=== PATIENT | female | born 1955 | race African-American/Black ===

== ENCOUNTER 2020-05-22 09:56 | Inpatient (IN) | payer SELFPAY ==
--- OUTSIDE RECORDS SUMMARY | 2020-05-22 10:00 | XMS REPORT | Continuity of Care Document ---
:1955 Author Organization [facility] t Address [address] [place] [address] Care Team Providers Name Role Phone Unavailable Unavailable Unavailable Problems Condition Condition Condition Status Onset Resolution Last Treating Co mments Source Name Details Category Date Date Treatment Clinician Date Vaginal Vaginal Problem Active [facility] pain Pain 8-23 da 00:00: Medical 00 Group Malignant Malignant Problem Active [facility] hypertensi Hypertensi 6-27 da on on 00:00: Medical 00 Group Allergies, Adverse Reactions, Alerts This patient has no known allergies or adverse reactions. Social History Smoking Status Start Date Stop Date Source Never Smoker [facility] Medications Ordered Filled Start Stop Current Ordering Indication Dosage Frequency Signature Comments Components Source Medication Medication Date Date Medication? Clinician (SIG) Name Name aspirin 325 aspirin 325 No 1 Q1D aspirin [facility] mg tablet mg tablet 325 mg da Take 1 Take 1 tablet Medical tablet tablet Take 1 Group every day every day tablet by oral by oral every day route. route. by oral route. Cardizem CD Cardizem CD No 1capsul Q1D Cardizem [facility] 180 mg 180 mg e(s) CD 180 mg da capsule,ext capsule,ext capsule,ex Medical ended ended tended Group release release release Take 1 Take 1 Take 1 capsule capsule capsule every day every day every day by oral by oral by oral route for route for route for 30 days. 30 days. 30 days. cyclobenzap cyclobenzap No 1 TID cyclobenza [facility] rine 10 mg rine 10 mg panda 10 da tablet Take tablet Take mg tablet Medical 1 tablet 3 1 tablet 3 Take 1 G roup times a day times a day tablet 3 by oral by oral times a route for route for day by 14 days. 14 days. oral route for 14 days. hydrochloro hydrochloro No 1 Q1D hydrochlor [facility] thiazide 25 thiazide 25 othiazide da mg tablet mg tablet 25 mg Medi darci Take 1 Take 1 tablet Group tablet tablet Take 1 every day every day tablet by oral by oral every day route. take route. take by oral for fluid for fluid route. retention retention take for and high and high fluid bld bld retention pressure pressure and high bld pressure metoprolol metoprolol No 1 BID metoprolol [facility] tartrate 50 tartrate 50 tartrate da mg tablet mg tablet 50 mg Medi darci Take 1 Take 1 tablet Group tablet tablet Take 1 twice a day twice a day tablet by oral by oral twice a route. take route. take day by for blood for blood oral pressure pressure route. take for blood pressure ondansetron ondansetron No 1 Q6H ondansetro [facility] 4 mg 4 mg n 4 mg da disintegrat disintegrat disintegra Medical ing tablet ing tablet ting Barbara up Take 1 Take 1 tablet tablet tablet Take 1 every 6 every 6 tablet hours by hours by every 6 oral route. oral route. hours by oral route. Vital Signs Vital Name Observation Time Observation Value Comments Source BP Diastolic 2019-07-09 00:00:00 97 [facility]Hg[facility] Height 2019-07-09 00:00:00 64 [in_i] [facility] BMI (Body Mass 2019-07-09 00:00:00 25.1 kg/m2 [facility]) Group BP Systolic 2019-07-09 00:00:00 193 mm[facility]Hg[facility] Body Weight 2019-07-09 00:00:00 2339.2 [oz_av] [facility] BP Diastolic 2019-02-06 00:00:00 109 mm[Hg] [facility] Height 2019-02-06 00:00:00 64 [in_i] [facility] BMI (Body Mass 2019-02-06 00:00:00 25.2 kg/m2 [facility] Index) Group BP Systolic 2019-02-06 00:00:00 215 mm[Hg] [facility] Body Weight 2019-02-06 00:00:00 2352 [oz_av] [facility] BP Diastolic 2018-11-17 00:00:00 94 mm[Hg] [facility] Height 2018-11-17 00:00:00 64 [in_i] [facility] BMI (Body Mass 2018-11-17 00:00:00 24.2 kg/m2 [facility] Index) Group BP Systolic 2018-11-17 00:00:00 186 mm[Hg] [facility] Body Weight 2018-11-17 00:00:00 141 [lb_av] [facility] BP Diastolic 2018-10-17 00:00:00 95 mm[Hg] [facility] Height 2018-10-17 00:00:00 64 [in_i] [facility] BMI (Body Mass 2018-10-17 00:00:00 24.8 kg/m2 [facility] Index) Group BP Systolic 2018-10-17 00:00:00 208 mm[Hg] [facility] Body Weight 2018-10-17 00:00:00 144.2 [lb_av] [facility] BP Diastolic 2018-10-14 00:00:00 97 mm[Hg] [facility] Height 2018-10-14 00:00:00 64 [in_i] [facility] BMI (Body Mass 2018-10-14 00:00:00 24.6 kg/m2 [facility]) Group BP Systolic 2018-10-14 00:00:00 218 mm[Hg] [facility] Body Weight 2018-10-14 00:00:00 143.6 [lb_av] [facility] BP Diastolic 2018-08-21 00:00:00 88 mm[Hg] [facility] Height 2018-08-21 00:00:00 64 [in_i] [facility] BMI (Body Mass 2018-08-21 00:00:00 24.7 kg/m2 [facility] Index) Group BP Systolic 2018-08-21 00:00:00 190 mm[Hg] [facility] Body Weight 2018-08-21 00:00:00 2305 [oz_av] [facility] Procedures Procedure Date / Time Performing Clinician Source Performed MAMMO, screening, 2018-08-21 00:00:00 [facility] Back Fusion 2003-09-27 00:00:00 [facility] Hy[facility] Appendectomy [facility] Delivery [facility] Plan of Care Planned Activity Planned Date Details Comments Source Instructions [facility] Encounters Start End Encounter Admission Attending Care Care Encounter Source Date/Time Date/Time Type Type Clinicians Facility Department ID 2019-07-09 2019-07-09 Britany GARVEY [place] - [id number] [facility] 00:00:00 00:00:00 [facility] Medical MANAGER OF PHARMACY: [address] [place] [address] [address], [place] [address] , Ph. 2019-02-06 2019-02-06 Britany MARE [place] - [id number] [facility] 00:00:00 00:00:00 Adilene Brown Medical Medical MANAGER OF PHARMACY: [address] [facility] [address], [place] [address] , Ph. 2018-11-17 2018-11-17 Romina [facility] [place] - [id number] M [facility] 00:00:00 00:00:00 Victoria Miguel Medicjesse galvan MD: [address] [place], [place] [address]N [address] [facility], [place] [address] , Ph. [phone] 2018-10-17 2018-10-17 Romina MARE [place] - [id number] M [facility] 00:00:00 00:00:00 Victoria Miguel Medicjesse galvan MD: [address] [place], [place] [address]N [address] [facility], [place] [address] , Ph. [phone] 2018-10-14 2018-10-14 Romina [facility] [place] - [id number] M [facility] 00:00:00 00:00:00 Darrin Alvarado Medical Medicjesse galvan MD: [address] [place], [place] [address]N [address] [facility], [place] [address] , Ph. [phone] 2018-08-21 2018-08-21 Lorenzo Tomas [facility]G [place] - [id number] [facility] 00:00:00 00:00:00 MD Anselmo: [address] Dane [facility] - [address], [facility] [address] , Ph. Results Test Description Test Time Test Comments Results Result Comments Source Surgical pathology study 2018-10-17 12:30:00 Test Item Value Reference Range Interpretation Comme nts Surgical pathology study (test code = 88226-6) [facility] gy report[id number] 12:30:00 Test Item Value Reference Range Interpretation Comments Surgical pathology see separate pathology study (test code = report. [id number]) [facility]
[2020-05-22 10:41] LABS: Absolute Lymphocytes (CBC) 1.3 K/uL (0.7-4.9); Basophils % 0.4 % (0-1.3); Hematocrit 43.9 % (36.0-45.0); Lymphocytes % 24.7 % (15.3-44.8); MPV 9.4 fL (7.6-11.3); RBC Red Blood Cell Count 4.98 M/uL (3.86-4.86)
[2020-05-22 10:42] LABS: Protime INR 0.93
--- NOTE | 2020-05-22 10:45 | RAD REPORT ---
EXAM DESCRIPTION: CT - Head Brain Wo Cont - 05/22/2020 10:31 am CLINICAL HISTORY: Numbness COMPARISON: None TECHNIQUE: Computed axial tomography of the head was obtained. IV contrast was not requested. All CT scans are performed using dose optimization technique as appropriate and may include automated exposure control or mA/KV adjustment according to patient size. FINDINGS: An intracranial bleed is not seen . The ventricles are normal in caliber. No extra-axial fluid collection is noted. 8 millimeter low-density area anterior left basal ganglia. Small additional low-density areas within the deep and periventricular white matter bilaterally. Small low-density right thalamus may represent an old lacunar infarction Fluid within the sinuses/ mastoids is not seen. IMPRESSION: 8 millimeter low-density area anterior left basal ganglia probably an old lacunar infarc tion. Additional low-density areas within periventricular and deep white matter bilaterally may be ischemic changes secondary to small vessel disease. If patient continues to have clinical symptoms to suggest an acute infarction then MRI of the brain w ould be recommended
[2020-05-22 10:58] LABS: BUN Blood Urea Nitrogen 13 mg/dL (7-18); Bicarbonate 26 mmol/L (21-32); Glucose Level 85 mg/dL (74-106); Magnesium 2.1 mg/dL (1.8-2.4); Potassium 3.7 mmol/L (3.5-5.1); Sodium Level 143 mmol/L (136-145); Troponin (Emerg Dept Use Only) < 0.02 ng/mL (0.0-0.045)
[2020-05-22] MEDS ORDERED: ASPIRIN 81 MG CHEWABLE TABLET ONE (11:09)
[2020-05-22] MEDS ORDERED: FOLIC ACID 5 MG/ML VIAL ONE (11:13)
--- NOTE | 2020-05-22 11:23 | EDPHYS ---
Physician Documentation [facility] Name: Sandra Cervantes Age: 64 yrs Sex: Female : 1955 Arrival Date: 05/22/2020 Time: 10:00 Bed 20 Private MD: ED Physician Octavio Duong HPI: 05/22 10:20 This 64 yrs old Black Female presents to ER via Ambulatory with complaints of Numbness rn Of Legs/Right Side, High Blood Pressure. 10:20 The patient presents to the emergency department with weakness of the right upper rn extremity, right lower extremity, right side of the face, paresthesias of the right lower extremity, right upper extremity, right side of the face. Onset: The symptoms/episode began/occurred 1.5 week(s) ago. Associated signs and symptoms: Pertinent positives: weakness, Pertinent negatives: fever, headache, neck stiffness, seizure, syncope, blurred vision, double vision, visual field changes, loss of vision. Severity of symptoms: At their worst the symptoms were mild in the emergency department the symptoms are unchanged. Current symptoms:. The patient has not experienced similar symptoms in the past. The patient has been recently seen by a physician:. Reports right sided weakness and numbness, began 1.5 weeks ago, then diagnosed with COVID this past week, never went away, feels worse of last 2 days. Reports assoc with dizziness as well. Off BP meds for > 1 year as changing doctors. . Historical: - Allergies: 10:15 No Known Allergies; ll1 - PMHx: 10:15 Hypertension; ll1 - PSHx: 10:15 Hysterectomy; ll1 - Immunization history:: Flu vaccine is not up to date. - Social history:: Smoking status: Patient denies any tobacco usage or history of. - Family history:: not pertinent. - Hospitalizations: : No recent hospitalization is reported. ROS: 10:20 Constitutional: Negative for fever, chills, and weight loss, Eyes: Negative for injury, rn pain, redness, and discharge, Neck: Negative for injury, pain, and swelling, Cardiovascular: Negative for chest pain, palpitations, and edema, Respiratory: Negative for shortness of breath, cough, wheezing, and pleuritic chest pain, Abdomen/GI: Negative for abdominal pain, nausea, vomiting, diarrhea, and constipation, Back: Negative for injury and pain, MS/Extremity: Negative for injury and deformity, Skin: Negative for injury, rash, and discoloration, Neuro: + right sided wekaness and numbness 10:20 All other systems are negative. Exam: 10:20 Constitutional: This is a well developed, well nourished patient who is awake, alert, rn and in no acute distress. Ambulatory to room with abnormal gait. Head/Face: Normocephalic, atraumatic. Eyes: Pupils equal round and reactive to light, extra-ocular motions intact. Neck: Trachea midline, no thyromegaly or masses palpated, and no cervical lymphadenopathy. Supple, full range of motion without nuchal rigidity, or vertebral point tenderness. No Meningismus. Cardiovascular: Regular rate and rhythm Respiratory: No increased work of breathing, no retractions or nasal flaring. Abdomen/GI: soft, non-tender Skin: Warm, dry MS/ Extremity: Pulses equal, no cyanosis. Neuro: Awake and alert, GCS 15, oriented to person, place, time, and situation. + mild right facial numbness, no facial droop noted. + RUE and RLE decreased sensation to soft touch, no drift. 5/5 strength RUE/LUE/LLE, 4/5 strength RLE. Coordination testing without abnormality. 11:07 ECG was reviewed by the Attending Physician. rn Vital Signs: 10:15 BP 229 / 109; Pulse 60; Resp 17; Temp 97.9; Weight 66.22 kg; Height 5 ft. 4 in. (162.56 ll1 cm); Pain 3/10; 10:27 BP 199 / 108; Pulse 61; Resp 20; Pulse Ox 97% ; bw 11:03 BP 180 / 88; Pulse 54; Resp 20; Pulse Ox 97% on R/A; bw 13:19 BP 182 / 77; Pulse 55; Resp 18; Pulse Ox 97% on R/A; bw 10:15 Body Mass Index 25.06 (66.22 kg, 162.56 cm) ll1 NIH Stroke Scale Scores: 10:43 NIHSS Score: 2 rn MDM: 10:02 Patient medically screened. rn 10:43 ED course: No indication for tpa given onset of symptoms 1.5 weeks prior to rn presentation. . 11:19 Data reviewed: vital signs, nurses notes, lab test result(s), EKG, radiologic studies, rn CT scan, and as a result, I will admit patient. Counseling: I had a detailed discussion with the patient and/or guardian regarding: the historical points, exam findings, and any diagnostic results supporting the discharge/admit diagnosis, lab results, radiology results, the need for further work-up and treatment in the hospital. Response to treatment: the patient's symptoms have mildly improved after treatment, and as a result, I will admit patient. Admission orders: after a detailed discussion of the patient's condition and case, the admit orders are written by me. ED course: Bp improved without intervention, currently 180/88, given aspirin and folic acid. Nursing states failed swallow screen when chewing aspirin, will admit to [facility] for MRI in AM and breanauo/cardiology consultation for subacute CVA and uncontrolled HTN.. 05/22 10:12 Order name: Magnesium rn 05/22 10:12 Order name: Troponin (emerg Dept Use Only); Complete Time: 11: rn 05/22 10:12 Order name: Basic Metabolic Panel; Complete Time: 11: rn 05/22 10:12 Order name: CBC with Diff; Complete Time: 10: rn 05/22 10:12 Order name: Protime (+inr); Complete Time: : rn 05/22 10:12 Order name: Ptt, Activated; Complete Time: : rn 05/22 10:12 Order name: EKG; Complete Time: 10: rn 05/22 10:12 Order name: Accucheck; Complete Time: : rn 05/22 10:12 Order name: Cardiac monitoring; Complete Time: : rn 05/22 10:12 Order name: CT Head Brain wo Cont; Complete Time: : rn 05/22 10:12 Order name: Magnesium; Complete Time: 11:12 EDMS 05/22 10:59 Order name: Glucose, Ancillary Testing; Complete Time: 11:12 EDMS 05/22 10:12 Order name: EKG - Nurse/Tech; Complete Time: : rn 05/22 10:12 Order name: IV Saline Lock; Complete Time: : rn 05/22 10:12 Order name: Labs collected and sent; Complete Time: rn 05/22 10:12 Order name: NPO; Complete Time: 10: rn 05/22 10:12 Order name: O2 Per Protocol; Complete Time: : rn 05/22 10:12 Order name: O2 Sat Monitoring; Complete Time: rn 05/22 10:12 Order name: Stroke Swallow Screen; Complete Time: 11: rn EC:07 Rate is 50 beats/min. Rhythm is regular. QRS [place] is Normal. [place] interval is normal. QRS rn interval is normal. QT interval is normal. No Q waves. T waves are Normal. No ST changes noted. Clinical impression: Sinus bradycardia. Interpreted by me. Reviewed by me. Administered Medications: 11: Drug: Aspirin Chewable Tablet 324 mg Route: PO; bw 13:09 Follow up: Response: No adverse reaction bw 11: Drug: foLIC Acid 1 mg Route: IVPB; Site: right antecubital; bw 13:09 Follow up: Response: No adverse reaction; IV Status: Completed infusion bw Disposition: 05/22/20 11:22 Hospitalization ordered by [facility] for Inpatient Admission. Preliminary diagnosis are Subacute ischemic stroke, Malignant Hypertension, Weakness, Paresthesia of skin. - Bed requested for Telemetry/MedSurg (Inpatient). - Status is Inpatient Admission. sv - Condition is Stable. - Problem is new. - Symptoms have improved. NIH Stroke Scale - NIH Stroke Score Date: 05/22/2020 Time: 10:43 Total Score = 2 1a. Level of Consciousness (LOC) - 0(Alert) 1b. Level of Consciousness (LOC) (Year \T\ Age) - 0(Both) 1c. LOC Commands (Open \T\ Closes Eyes/Repairer Veneer Sheet) - 0(Both) 2. Best Gaze (Lateral Gaze Paresis) - 0(Normal) 3. Visual Field Loss - 0(No visual loss) 4. Facial Palsy - 0(Normal) 5a. Left Arm: Motor (10-second hold) - 0(No drift) 5b. Right Arm: Motor (10-second hold) - 0(No drift) 6a. Left Leg: Motor (5-second hold - always test supine) - 0(No drift) 6b. Right Leg: Motor (5-second hold - always test supine) - 1(Drift) 7. Limb Ataxia (finger/nose \T\ heel/majano - test with eyes open) - 0(Absent) 8. Sensory Loss (pinprick arms/legs/face) - 1(Mild to moderate loss) 9. Best Language: Aphasia (description/naming/reading) - 0(No aphasia) 10. Dysarthria (speech clarity - read or repeat words) - 0(Normal) 11. Extinction and Inattention (visual/tactile/auditory/spatial/personal) - 0(No abnormality) Initials: rn Signatures: Dispatcher [employer] EDBelkis Dean RN RN sv Woody, Diana, RN RN dw Nieto, Roman, MD MD rn Lewis, Lynsay, RN RN ll1 Marlena Marroquin RN RN bw Corrections: (The following items were deleted from the chart) 12:48 11:22 Hospitalization Ordered by [facility] for Inpatient Admission. dw Preliminary diagnosis is Subacute ischemic stroke; Malignant Hypertension; Weakness; Paresthesia of skin. Bed requested for Telemetry/MedSurg (Inpatient). Status is Inpatient Admission. Condition is Stable. Problem is new. Symptoms have improved. rn 14:12 12:48 05/22/2020 11:22 Hospitalization Ordered by [facility] for Inpatient Admission. Preliminary diagnosis is Subacute ischemic stroke; Malignant Hypertension; Weakness; Paresthesia of skin. Bed requested for Telemetry/MedSurg (Inpatient). Status is Inpatient Admission. Condition is Stable. Problem is new. Symptoms have improved. dw
--- NOTE | 2020-05-22 11:23 | ER ---
Nurse's Notes [facility] Name: Sandra Cervantes Age: 64 yrs Sex: Female : 1955 Arrival Date: 05/22/2020 Time: 10:00 Bed 20 Private MD: Diagnosis: Subacute ischemic stroke;Malignant Hypertension;Weakness;Paresthesia of skin Presentation: 05/22 10:15 Chief complaint: Patient states: R sided weakness and feeling off balanced since 05-11. ll1 BP elevated at home 202/120. States her speech is slightly slurred at times. Covid + dx 05/18. States her cough and fever are a lot better now. Coronavirus screen: Client denies travel out of the [place] in the last 14 days. cough unrelated to allergies, Client presents with at least one sign or symptom that may indicate coronavirus-19. Standard/surgical mask placed on the client. Client reports previous positive COVID test result. Ebola Screen: Patient denies travel to an Ebola-affected area in the 21 days before illness onset. Initial Sepsis Screen: Does the patient meet any 2 criteria? No. Patient's initial sepsis screen is negative. Does the patient have a suspected source of infection? No. Patient's initial sepsis screen is negative. Risk Assessment: Do you want to hurt yourself or someone else? Patient reports no desire to harm self or others. Onset of symptoms was May 11, 2020. 10:15 Method Of Arrival: Ambulatory ll1 10:15 Acuity: ELIDA 2 ll1 Historical: - Allergies: 10:15 No Known Allergies; ll1 - PMHx: 10:15 Hypertension; ll1 - PSHx: 10:15 Hysterectomy; ll1 - Immunization history:: Flu vaccine is not up to date. - Social history:: Smoking status: Patient denies any tobacco usage or history of. - Family history:: not pertinent. - Hospitalizations: : No recent hospitalization is reported. Screenin:19 Abuse screen: Denies threats or abuse. Nutritional screening: No deficits noted. ll1 Tuberculosis screening: No symptoms or risk factors identified. Fall Risk IV access (20 points). Gait- Weak (10 pts.). Total Wyman Fall Scale indicates Low Risk Score (25-44 pts). Fall prevention measures have been instituted. Side Rails Up X 2 Frequent Obs/Assesments occuring As available Patient and Family Educated on Fall Prevention Program and strategies. Assessment: 10:27 General: Appears in no apparent distress. Behavior is cooperative, appropriate for age, bw anxious. Pain: Complains of pain in right leg. Neuro: Reports numbness in right cheek and right leg weakness in right leg since 10 days ago. Cardiovascular: high BP since arrival. Pt states she has had high BP for some time now. . Respiratory: No deficits noted. GI: No signs and/or symptoms were reported involving the gastrointestinal system. : No signs and/or symptoms were reported regarding the genitourinary system. EENT: No signs and/or symptoms were reported regarding the EENT system. Derm: No signs and/or symptoms reported regarding the dermatologic system. Musculoskeletal: Reports weakness in right leg numbness in right leg since 10 days ago. 11:02 Neuro: Pt has failed swallow screen. Reported to MD . bw 12:00 Reassessment: No changes from previously documented assessment. bw 13:00 Reassessment: Patient appears in no apparent distress at this time. Patient and/or bw family updated on plan of care and expected duration. Pain level reassessed. Patient is alert, oriented x 3, equal unlabored respirations, skin warm/dry/pink. Vital Signs: 10:15 BP 229 / 109; Pulse 60; Resp 17; Temp 97.9; Weight 66.22 kg; Height 5 ft. 4 in. (162.56 ll1 cm); Pain 3/10; 10:27 BP 199 / 108; Pulse 61; Resp 20; Pulse Ox 97% ; bw 11:03 BP 180 / 88; Pulse 54; Resp 20; Pulse Ox 97% on R/A; bw 13:19 BP 182 / 77; Pulse 55; Resp 18; Pulse Ox 97% on R/A; bw 10:15 Body Mass Index 25.06 (66.22 kg, 162.56 cm) ll1 NIH Stroke Scale Scores: 10:43 NIHSS Score: 2 modern dancer Course: 10:00 Patient arrived in ED. rg4 10:02 Octavio Duong MD is Attending Physician. rn 10:15 Arm band placed on Patient placed in an exam room, on a stretcher. ll1 10:19 Triage completed. ll1 10:19 Patient has correct armband on for positive identification. Bed in low position. Call ll1 light in reach. Side rails up X 1. desktop publishing specialist on. Pulse ox on. NIBP on. 10:27 Marlena Marroquin RN is Primary Nurse. bw 10:27 No provider procedures requiring assistance completed. Inserted saline lock: 20 gauge bw in right antecubital area, using aseptic technique. 10:31 CT Head Brain wo Cont In Process Unspecified. EDMS 11:19 Magnesium Sent. sv 11:21 Raul Elizabeth is Hospitalizing Provider. rn Administered Medications: 11:02 Drug: Aspirin Chewable Tablet 324 mg Route: PO; bw 13:09 Follow up: Response: No adverse reaction bw 11:02 Drug: foLIC Acid 1 mg Route: IVPB; Site: right antecubital; bw 13:09 Follow up: Response: No adverse reaction; IV Status: Completed infusion bw Outcome: 11:22 Decision to Hospitalize by Provider. rn 14:12 Patient left the ED. sv NIH Stroke Scale - NIH Stroke Score Date: 05/22/2020 Time: 10:43 Total Score = 2 1a. Level of Consciousness (LOC) - 0(Alert) 1b. Level of Consciousness (LOC) (Year \T\ Age) - 0(Both) 1c. LOC Commands (Open \T\ Closes Eyes/Diecast Machine Operator) - 0(Both) 2. Best Gaze (Lateral Gaze Paresis) - 0(Normal) 3. Visual Field Loss - 0(No visual loss) 4. Facial Palsy - 0(Normal) 5a. Left Arm: Motor (10-second hold) - 0(No drift) 5b. Right Arm: Motor (10-second hold) - 0(No drift) 6a. Left Leg: Motor (5-second hold - always test supine) - 0(No drift) 6b. Right Leg: Motor (5-second hold - always test supine) - 1(Drift) 7. Limb Ataxia (finger/nose \T\ heel/majano - test with eyes open) - 0(Absent) 8. Sensory Loss (pinprick arms/legs/face) - 1(Mild to moderate loss) 9. Best Language: Aphasia (description/naming/reading) - 0(No aphasia) 10. Dysarthria (speech clarity - read or repeat words) - 0(Normal) 11. Extinction and Inattention (visual/tactile/auditory/spatial/personal) - 0(No abnormality) Initials: rn Signatures: Dispatcher [employer] Belkis Melgar RN RN Octavio Mejias MD MD rn Garcia, Rubi rg4 Dalila Murphy RN RN 1 Marlena Marroquin RN RN bw Corrections: (The following items were deleted from the chart) 13:17 12:00 Reassessment: Patient appears in no apparent distress at this time. bw Patient and/or family updated on plan of care and expected duration. Pain level reassessed. Patient is alert, oriented x 3, equal unlabored respirations, skin warm/dry/pink. bw
--- NOTE | 2020-05-22 12:52 | P.HP ---
Certification for Inpatient Patient admitted to: Inpatient With expected LOS: >2 Midnights Practitioner: I am a practitioner with admitting privileges, knowledge of patient current condition, hospital course, and medical plan of care. Services: Services provided to patient in accordance with Admission requirements found in Title 42 Section 412.3 of the Code of Federal Regulations Patient History Date of Service: 05/22/20 Reason for admission: Right-sided weakness History of Present Illness: 64-year-old hypertension presented emergency department with a complaint right sided with weakness and right facial droop. Patient reports experiencing numbness in the right upper extremity lower extremity about 1/2 weeks ago. Symptoms progressed to weakness in both the right upper extremity and right lower a week later. Patient report feeling generally weak few days ago and therefore had COVID 19 test done which came back positive. CT head done in the emergency department showed 8 mm low density left basal ganglia, additional low- density areas in the periventricular and white matter. EKG is unremarkable showing sinus rhythm. Patient admitted for further management of acute CVA. - Past Medical/Surgical History -: Hypertension -: Hysterectomy - Family History Mother -: Cancer (Breast cancer) - Social History Smoking Status: Never smoker Alcohol use: No CD- Drugs: No Place of Residence: Home Review of Systems Other: Patient denied any headache, no shortness of breath, no abdominal pain, no diarrhea, no nausea and vomiting. He reports intermittent nonproductive cough. Except as documented, all other systems reviewed and negative. Physical Examination - Physical Exam General: Alert, In no apparent distress, Oriented x3 HEENT: Normocephalic, PERRLA, Mucous membr. moist/pink, EOMI, Sclerae nonicteric Neck: Supple, JVD not distended, No Thyromegaly Respiratory: Clear to auscultation bilaterally, Normal air movement Cardiovascular: No edema, Regular rate/rhythm, Normal S1 S2 Gastrointestinal: Normal bowel sounds, Soft and benign, Non-distended, No tenderness Musculoskeletal: No swelling, No tenderness Integumentary: No rashes, No erythema Neurological: Other (Motrin right upper and lower extremities-4/5, motor in the left upper and lower extremities-5/5. Right facial droop.) - Studies Laboratory Data (last 24 hrs) 05/22/20 10:25: PT 10.7, INR 0.93, APTT 29.1 05/22/20 10:25: WBC 5.30, Hgb 14.8, Hct 43.9, Plt Count 136 L 05/22/20 10:25: Sodium 143, Potassium 3.7, BUN 13, Creatinine 0.58, Glucose 85, Magnesium 2.1 Assessment and Plan - Problems (Diagnosis) (1) Acute CVA (cerebrovascular accident) Current Visit: Yes Status: Acute (2) Malignant hypertension Current Visit: Yes Status: Acute (3) COVID-19 Current Visit: Yes Status: Acute - Plan Admit patient to the medical floor. Stroke workup with MRI of the brain, carotid Doppler, echocardiogram. Start aspirin 162 mg daily. Will start amlodipine. It been 1 and 1/2 weeks since her neurologic symptoms- stroke onset and need to control her blood pressure Hydralazine IV p.r.n. for BP spikes. Lipitor 40 mg at bedtime Check lipid profile Neurology consult. Check chest x-ray to rule out COVID pneumonia. Folic acid, vitamin supplementation. - Advance Directives Does patient have a Living Will: No Does patient have a Durable POA for Healthcare: No
[2020-05-22] MEDS: NA CHLORIDE 0.9% 1,000 ML IV SCH (15:07)
[2020-05-22 15:21] VITALS: BMI 25.0
--- NOTE | 2020-05-22 15:34 | RAD REPORT ---
EXAM DESCRIPTION: [place] Single View05/22/2020 3:28 pm CLINICAL HISTORY: Cough COMPARISON: none FINDINGS: The left lung base is hazy. The right lung appears clear. The heart is upper limits normal size IMPRESSION: The left base is hazy probably secondary to overlying soft tissue. As infiltrate can als o have this appearance. A PA and lateral chest series is recommended
[2020-05-22] MEDS: HYDRALAZINE HCL 20 MG/ML VIAL IV PRN (16:22)
[2020-05-22] MEDS: AMLODIPINE 10 MG TAB PO SCH (16:22)
[2020-05-22] MEDS: ASCORBIC ACID 500 MG TABLET PO SCH ×2 (17:00→19:57)
--- NOTE | 2020-05-22 17:56 | RAD REPORT ---
EXAM DESCRIPTION: USCarotid Artery Bilateral05/22/2020 5:42 pm CLINICAL HISTORY: Acute CVA COMPARISON: None FINDINGS: The velocity of the right internal carotid artery equals 96 cm/sec. The right ICA/CCA rati o .8 The velocity of the left internal carotid artery equals 78 cm/sec. The left ICA/CCA ratio .8 Mild plaque is present within the carotid arteries. The vertebral arteries demonstrate antegrade flow IMPRESSION: Mild plaque within the carotid arteries without evidence of a hemodynamically significan t stenosis NASCET criteria used. Mild 0-49% stenosis Moderate 50-69% stenosis Severe 70-99% stenosis
[2020-05-22] MEDS: ACETAMINOPHEN 500 MG TAB PO PRN (19:57)
[2020-05-22] MEDS: ATORVASTATIN 20 MG TAB PO SCH (19:57)
[2020-05-22] MEDS: ONDANSETRON 4 MG/2 ML VIAL IV PRN (19:57)
[2020-05-23 04:30] LABS: Absolute Lymphocytes (CBC) 1.3 K/uL (0.7-4.9); Basophils % 0.4 % (0-1.3); Hematocrit 42.4 % (36.0-45.0); Lymphocytes % 33.7 % (15.3-44.8); MPV 9.8 fL (7.6-11.3); RBC Red Blood Cell Count 4.78 M/uL (3.86-4.86)
[2020-05-23 04:52] LABS: BUN Blood Urea Nitrogen 14 mg/dL (7-18); Bicarbonate 29 mmol/L (21-32); Glucose Level 76 mg/dL (74-106); HDL Cholesterol 65 mg/dL (40-60); LDL Cholesterol, Calculated 113 (<130); Magnesium 1.9 mg/dL (1.8-2.4); Phosphorus 3.5 mg/dL (2.5-4.9); Sodium Level 142 mmol/L (136-145)
[2020-05-23 04:57] LABS: Barbiturates NEGATIVE (NEGATIVE); Benzodiazepines NEGATIVE (NEGATIVE); Cocaine NEGATIVE (NEGATIVE); METHAMPHETAM NEGATIVE (NEGATIVE); Methadone NEGATIVE (NEGATIVE); Opiates NEGATIVE (NEGATIVE); Phencyclidine NEGATIVE (NEGATIVE); THC Cannibis NEGATIVE (NEGATIVE)
[2020-05-23 04:59] LABS: Urine Appearance CLEAR; Urine Bilirubin NEGATIVE (NEG); Urine Blood NEGATIVE (Negative); Urine Color YELLOW; Urine Glucose NEGATIVE (Negative); Urine Protein NEGATIVE (NEG); Urine pH 6.5 (5.0-7.0)
[2020-05-23 05:14] LABS: Urine Microscopic Reflex NO UMIC
[2020-05-23] MEDS: ACETAMINOPHEN 500 MG TAB PO PRN ×2 (05:42→19:02)
[2020-05-23 06:15] LABS: Blood Morphology Comment NOT SEEN (NOT SEEN); Platelet Estimate ADEQ
[2020-05-23] MEDS: FOLIC ACID 1 MG TABLET PO SCH (07:25)
[2020-05-23] MEDS: ASPIRIN EC 81 MG TAB PO SCH (07:25)
[2020-05-23] MEDS: VITAMIN D 1000 UNIT TAB PO SCH (07:25)
[2020-05-23] MEDS: AMLODIPINE 10 MG TAB PO SCH (07:25)
[2020-05-23] MEDS: ASCORBIC ACID 500 MG TABLET PO SCH ×4 (07:25→19:47)
[2020-05-23] MEDS: ZINC SULFATE 220 MG CAP PO SCH (07:26)
[2020-05-23] MEDS: ENOXAPARIN 40 MG/0.4 ML SQ SCH (07:26)
[2020-05-23] MEDS: NA CHLORIDE 0.9% 1,000 ML IV SCH (11:07)
--- NOTE | 2020-05-23 11:46 | RAD REPORT ---
EXAM DESCRIPTION: MRI - Brain W/Wo Cont - 05/23/2020 11:27 am CLINICAL HISTORY: cva, right-sided weakness, positive COVID COMPARISON: MRA Head Wo Cont dated 05/23/2020; Head Brain Wo Cont dated 05/22/2020; MRA Neck W/Wo Cont dated 05/23/2020 TECHNIQUE: Sagittal and axial T1-weighted images were obtained. Axial PD/heavily T2-weighted and T2- FLAIR images were obtained along with axial DWI/ADC mapping sequences. Coronal heavily T2 weighted s equence obtained. Axial and coronal post-contrast T1-weighted images were also obtained. A 14 ml Mul tihance contrast following utilized. FINDINGS: Two 10 millimeter sized areas of restricted diffusion noted in the lateral margin of the l eft thalamus involving the posterior limb internal capsule on the left. There is corresponding dimini shed signal on ADC mapping. Two additional 5 millimeter sized areas of restricted diffusion noted in the medial margin of the left temporal lobe in relatively close proximity to the other 2 lesions. The se also have diminished signal on ADC mapping. No intracranial hemorrhage present. No other areas of acute infarctions seen There is no edema or maria de jesus ft of midline structures. No extra-axial fluid collections. Caraballo-matter/white matter junction is pres erved. Signal voids are seen as a normal finding in the major intracranial vessels. Patient has scat tered areas of hyperintense T2/IR signal in the cerebral white matter. No associated enhancement on p ostcontrast imaging. Atrophy changes are mild. Chronic ischemic pattern is more prominent than typica lly seen at this age. Ventricles are in proportion to any volume loss. Post-contrast images show no brain parenchymal enhancement. No dural thickening or enhancement. Mastoid air cells and paranasal sinuses are clear. IMPRESSION: Cluster of nonhemorrhagic acute infarctions, 5-10 mm in size, along the lateral margin o f the left thalamus involving the posterior limb internal capsule on the left and medial aspect of th e left temporal lobe. Atrophy changes are present with ventricles in proportion. Patient has chronic ischemic changes scatt ered throughout the cerebral white matter more prominent than typically seen at this age.
--- NOTE | 2020-05-23 11:50 | RAD REPORT ---
EXAM DESCRIPTION: MRI - MRA Head Wo Cont - 05/23/2020 11:26 am CLINICAL HISTORY: Acute CVA COMPARISON: MRI brain same date TECHNIQUE: Axial and coronal 3D [id number] image acquisition was performed. 3D rotational images were generated with source and reconstruction images reviewed. Horizontal and vertical axis rotation al views generated using MIP protocol. FINDINGS: No aneurysm or vascular malformation identifiable. Distal vertebral arteries and basilar a rtery show no suspicious findings. No significant atherosclerotic stenosis changes identified in the distal internal carotid arteries. There is some atherosclerotic changes evident in the right supracli noid ICA. No named branch occlusion or focal high-grade stenosis seen in the anterior, posterior or m iddle cerebral artery distributions. The A1 segment right anterior cerebral artery is absent probably as an anatomic variant rather than due to vascular disease. The patient's infarction pattern generally involves small thalamoperforating branches below MR resolu tion. IMPRESSION: Scattered atherosclerotic changes are present but no named branch occlusion for signific ant luminal stenoses.
--- NOTE | 2020-05-23 11:51 | RAD REPORT ---
EXAM DESCRIPTION: MRI - MRA Neck W/Wo Cont - 05/23/2020 11:26 am CLINICAL HISTORY: Acute CVA left thalamus margin and posterior limb internal capsule COMPARISON: None. TECHNIQUE: Axial and coronal 3D [id number] image acquisition was performed. 3D rotational images were generated with source and reconstruction images reviewed. Horizontal and vertical axis rotation al views generated using MIP protocol. FINDINGS: No aneurysm or vascular malformation. Codominant vertebral arteries show no origins stenos es and no significant atherosclerotic change along the course of the vessels. No basilar artery abnor mality. Aortic arch is 3 vessel configuration with no origins stenosis. No dissection or significant atherosc lerotic changes in the carotid vasculature. There is bilateral internal carotid artery tortuosity, mo re so on the right. IMPRESSION: MRA neck imaging shows no significant findings.
--- NOTE | 2020-05-23 12:22 | P.PN ---
Subjective Date of Service: 05/23/20 Chief Complaint: Right-sided weakness Patient seen ambulating the bathroom and unassisted. She states she feels better. She denies any trouble with swallowing and wants to eat. Physical Examination - Vital Signs Temperature: 97.4 F Blood Pressure: 177/80 Pulse: 63 Respirations: 17 Pulse Ox (%): 98 - Physical Exam General: Alert, In no apparent distress, Oriented x3 Neck: Supple, JVD not distended Respiratory: Clear to auscultation bilaterally, Normal air movement Cardiovascular: No edema, Regular rate/rhythm, Normal S1 S2 Gastrointestinal: Normal bowel sounds, Soft and benign Musculoskeletal: No swelling, No tenderness Integumentary: No rashes, No erythema Neurological: Other (Mild right facial droop) Assessment And Plan - Current Problems (Diagnosis) (1) Acute CVA (cerebrovascular accident) Current Visit: Yes Status: Acute (2) Malignant hypertension Current Visit: Yes Status: Acute (3) COVID-19 Current Visit: Yes Status: Acute - Plan MRI of the brain report multiple nonhemorrhagic acute CVA in the left thalamus, temporal and internal capsule. MRA of the head and neck: Shows atherosclerotic lesions, no significant vessel stenosis. MRI of the neck: No significant abnormality. Echocardiogram is pending Continue aspirin 162 mg daily. Continue amlodipine for a target systolic blood pressure between 140-160. Hydralazine IV p.r.n. for BP spikes. Continue lipitor. Neurology-Dr. Belcher input appreciated. Dr. Belcher to see patient. Chest x-ray: No significant infiltrate to suggest COVID pneumonia. Patient is tolerating room air with good oxygen saturation. Folic acid, vitamin supplementation.
[2020-05-23] MEDS ORDERED: HYDROCODONE/APAP 7.5/325 MG TAB PO PRN (19:33)
[2020-05-23] MEDS: ATORVASTATIN 20 MG TAB PO SCH (19:47)
[2020-05-23] MEDS: HYDRALAZINE HCL 20 MG/ML VIAL IV PRN (19:53)
--- NOTE | 2020-05-23 21:50 | CON ---
Reason For Consultation: Consultation called due to stroke. History Of Present Illness: Ms. Cervantes is a 64-year-old right-handed patient with history of hypertension, who was enjoying spring break over a week and a half ago when she developed right-s ided numbness and weakness including face, arm, and leg. She did not immediately seek attention of [facility] medical services. She was having symptoms just of mild fever of COVID-19 and was actually tested positive for COVID-19 one week ago. She eventually came to [facility] on May 22, 2020, wh ere her brain imaging included a head CT scan that identified an 8 mm low-density area in the left ba kriss ganglia related to an old infarct possibly; however, an MRI of the brain done the following day i dentified the area as having 2 areas actually of restricted diffusion in the left margin of the left thalamus and posterior limb of the internal capsule on the left. There were 2 additional 5 mm sized areas of restricted diffusion in the medial margin of the left temporal lobe, which were close in pro ximity to the prior 2 and these were found to be acute strokes. The patient's symptoms of right-side d numbness and weakness correlated with the location of these acute strokes. The cervical or neck ma gnetic resonance angiogram did not identify any significant blockage or abnormality and the MRA of th e head confirmed the presence of the strokes as indicated. The patient was not taking an aspirin and was put on aspirin, she is receiving 162 mg daily, put on folic acid and statin, Lipitor 40 mg at [facility]. She was placed on amlodipine and has had blood pressures ranging up to systolic 177 and diastol ic in the 80s, pulse is normal in the 60s to 70s, and she is afebrile. Since hospitalization, she fe els she is back to about 40-50% of normal. She did ambulate with physical therapist, but was driftin g towards the right and did have some difficulty maintaining an upright stance. Past Medical History: As indicated including the hypertension. Past Surgical History: Hysterectomy. Family History: Breast cancer in mother. Social History: Denies alcohol, tobacco, or IV drug use. Review of Systems: Aside from the fever and some nonproductive cough, she did have COVID test being positive. Current Medications: Norvasc 10 mg daily, vitamin C 1000 mg 4 times daily, aspirin 162 mg daily, Lip itor 40 mg at bedtime, vitamin D 4000 units daily, Lovenox 40 mg subcutaneously daily, folate 1 mg da kash, hydralazine as needed for blood pressure control that is 10 mg every 6 hours, and zinc 220 mg da kash. Physical Examination: Vital Signs: Blood pressure 177/80, pulse 63, respiratory rate 16, temperature 98.1, oxygen saturati on 98% on room air. Weight 146 pounds, height 5 feet 4 inches, BMI 25.1. General: Ms. Cervantes is resting in bed. She is eating lunch. She is in no acute distress. HEENT: She is normocephalic, atraumatic. Sclerae anicteric. Oropharynx pink and moist. Neck: Supple. Chest: Clear. Heart: Regular. Extremities: No edema, cyanosis, or clubbing. Neurological: Cranial nerve exam, she has no obvious deficits there except for mild decrease in the right nasolabial fold and decreased sensation in the right V1, V2, V3 compared to the left side. She was actually cleared for swallowing and is now eating. She did have a meal in 2 days. Motor examin ation in the left upper and lower extremity 5/5, in the right 4/5 proximally and distally. Sensory e xam, normal sensation to light touch, pinprick, and temperature in the left upper and lower extremity , on the right side decreased to the arm and leg to light touch and temperature. Reflexes symmetric in upper and lower extremities. Coordination intact in the upper and lower extremities. Gait, some tendency to fall over to the right side. Laboratory Studies: Complete blood count with differential shows white blood cell count 3.8 and hemo globin 14.2. INR 0.93. Chemistries essentially unremarkable except for slightly elevated chloride 1 09, calcium 8.4. Phosphorus and magnesium are normal. Her LDL cholesterol 113, HDL cholesterol is 6 5. Vitamin D is pending. B12 is 662. TSH is 2.06. Urinalysis shows 2+ ketones, otherwise normal. Toxicology is negative. Her carotid artery ultrasound shows no evidence of hemodynamically signific ant stenosis with mild hard plaque bilaterally. Chest x-ray shows left lung base is hazy, probably s econdary to overlying soft tissue, however, it is noted that an infiltrate may also have this appeara nce and a PA study and lateral study is recommended. Assessment: Ms. Cervantes is a 64-year-old patient, who is COVID positive, has hypertension as an celsa tional stroke risk factor and was on a spring break when the event occurred. She had stroke of the l ikely posterior circulation perforating arteries, left to the thalamus and medial structures in the o ccipital region. She has deficits in the strength and sensation in the face, arm, and leg on the rig ht. Plan: 1.Treat for acute COVID with supplements as indicated, which she is currently on. 2.Aspirin 81 mg daily. 3.Folate 1 mg daily. 4.Lipitor 40 mg at bedtime. 5.The patient may benefit from aggressive physical therapy, which may be done outpatient as she was ambulated by physical therapy and did have difficulty moving the right lower extremity. She was able to stand, transfer, and ambulate with small steps. Her plan was to be discharged home, but to [facility] physical therapy on an outpatient basis and this should be continued. She may follow up in Dr. Zoey graff's clinic 1 month after discharge. LEAH/MARIELY Voice ID: [id number] Report ID: [id number]
[2020-05-24 04:10] LABS: Absolute Lymphocytes (CBC) 1.5 K/uL (0.7-4.9); Basophils % 0.4 % (0-1.3); Hematocrit 40.8 % (36.0-45.0); Lymphocytes % 36.7 % (15.3-44.8); MPV 9.8 fL (7.6-11.3); RBC Red Blood Cell Count 4.61 M/uL (3.86-4.86)
[2020-05-24 04:37] LABS: BUN Blood Urea Nitrogen 16 mg/dL (7-18); Bicarbonate 24 mmol/L (21-32); Ferritin 90.8 ng/mL (8-388); Glucose Level 92 mg/dL (74-106); Magnesium 1.9 mg/dL (1.8-2.4); Potassium 3.5 mmol/L (3.5-5.1); Sodium Level 144 mmol/L (136-145)
[2020-05-24 04:48] LABS: C-Reactive Protein < 2.90 mg/L (<3.00)
[2020-05-24] MEDS ORDERED: POTASSIUM CL SA 10 MEQ TAB PO ONE (05:00)
[2020-05-24] MEDS: NA CHLORIDE 0.9% 1,000 ML IV SCH (05:13)
[2020-05-24] MEDS: ONDANSETRON 4 MG/2 ML VIAL IV PRN (06:15)
[2020-05-24] MEDS ORDERED: hydroCHLOROthiazide 12.5 MG CAP PO SCH (09:00)
[2020-05-24] MEDS ORDERED: lisinopriL 20 MG TAB PO SCH (09:00)
[2020-05-24] MEDS: VITAMIN D 1000 UNIT TAB PO SCH (10:39)
[2020-05-24] MEDS: ASPIRIN EC 81 MG TAB PO SCH (10:39)
[2020-05-24] MEDS: ASCORBIC ACID 500 MG TABLET PO SCH ×2 (10:40→14:27)
[2020-05-24] MEDS: AMLODIPINE 10 MG TAB PO SCH (10:41)
[2020-05-24] MEDS: FOLIC ACID 1 MG TABLET PO SCH (10:41)
[2020-05-24] MEDS: ZINC SULFATE 220 MG CAP PO SCH (10:41)
[2020-05-24] MEDS: ENOXAPARIN 40 MG/0.4 ML SQ SCH (10:41)
[2020-05-24 12:04] VITALS: TEMP 98.5
--- NOTE | 2020-05-24 13:08 | P.DS ---
Admission Date: 05/22/20 Discharge Date: 05/24/20 Disposition: ROUTINE DISCHARGE Discharge Condition: GOOD Reason for Admission: Right-sided weakness Consultations: Neuro - Dr. Belcher Procedures: CT Head (05/22): 8 millimeter low-density area anterior left basal ganglia probably an old lacunar infarction. Additional low-density areas within periventricular and deep white matter bilaterally may be ischemic changes secondary to small vessel disease Carotid U/S (05/22): Mild plaque within the carotid arteries without evidence of a hemodynamically significant stenosis CXR (05/22): The left base is hazy probably secondary to overlying soft tissue. As infiltrate can also have this appearance. A PA and lateral chest series is recommended MRI Brain (05/23): Cluster of nonhemorrhagic acute infarctions, 5-10 mm in size, along the lateral margin of the left thalamus involving the posterior limb internal capsule on the left and medial aspect of the left temporal lobe. Atrophy changes are present with ventricles in proportion. Patient has chronic ischemic changes scattered throughout the cerebral white matter more prominent than typically seen at this age. MRA Brain (05/23): Scattered atherosclerotic changes are present but no named branch occlusion for significant luminal stenoses. MRA Neck (05/23): MRA neck imaging shows no significant findings. No aneurysm or vascular malformation. Codominant vertebral arteries show no origins stenoses and no significant atherosclerotic change along the course of the vessels. No basilar artery abnormality. TTE (05/23): Technically difficult study. Grossly normal LVEF and size. no evidence of thrombus. Problem List: Acute CVA (cerebrovascular accident) Malignant hypertension COVID-19 + Brief History of Present Illness: 64-year-old hypertension presented emergency department with a complaint right sided with weakness and right facial droop. Patient reports experiencing numbness in the right upper extremity lower extremity about 1-2 weeks ago. Symptoms progressed to weakness in both the right upper extremity and right lower a week later. Patient report feeling generally weak few days ago and therefore had COVID 19 test done which came back positive. CT head done in the emergency department showed 8 mm low density left basal ganglia, additional low- density areas in the periventricular and white matter. EKG is unremarkable showing sinus rhythm. Patient admitted for further management of acute CVA. Hospital Course: Patient underwent further evaluation for CVA with the rest of her imaging unremarkable (MRA brain/neck, carotid U/S, echocardiogram). Her stroke may have been precipitated by her COVID-19 infection. Neurology and PT were consulted. Patient had some improvement of her symptoms and was able to ambulate. She did not have any pulmonary symptoms of COVID-19. She was discharged home on aspirin 81mg and Eliquis given her COVID-19 infection. She will follow up with her PCP in 3-5 days and Neurology in ~ 1 month. There is unclear data on duration of anticoagulation in COVID-19+ patients. Her BP was noted to be significantly high on admission with SBP >200. She was started on norvasc and continued with SBP > 170, so lisinopril was added as well. She was several days removed from initial onset and beyond allowance for permissive hypertension. Vital Signs/Physical Exam: Physical Exam General: Alert, In no apparent distress, Oriented x3 Neck: Supple, JVD not distended Respiratory: Clear to auscultation bilaterally, Normal air movement Cardiovascular: No edema, Regular rate/rhythm, Normal S1 S2 Gastrointestinal: Normal bowel sounds, Soft and benign Integumentary: No rashes, No erythema Neurological: Mild right facial droop (nasolabial fold), mild decreased sensation in R V1-V3 compared to left., 4/5 strength at RUE/RLE. 5/5 LUE/LLE strength. Temp Pulse Resp BP Pulse Ox 98.5 F 63 18 167/86 H 99 05/24/20 12:00 05/24/20 12:00 05/24/20 12:00 05/24/20 12:00 05/24/20 12:00 Laboratory Data at Discharge: WBC 4.10 K/uL (4.3-10.9) L 05/24/20 03:15 Hgb 13.9 g/dL (12.0-15.0) 05/24/20 03:15 Hct 40.8 % (36.0-45.0) 05/24/20 03:15 Plt Count 119 K/uL (152-406) L 05/24/20 03:15 PT 10.7 SECONDS (9.5-12.5) 05/22/20 10:25 INR 0.93 05/22/20 10:25 APTT 29.1 SECONDS (24.3-36.9) 05/22/20 10:25 Sodium 144 mmol/L (136-145) 05/24/20 03:15 Potassium 3.5 mmol/L (3.5-5.1) 05/24/20 03:15 BUN 16 mg/dL (7-18) 05/24/20 03:15 Creatinine 0.47 mg/dL (0.55-1.3) L 05/24/20 03:15 Glucose 92 mg/dL (74-106) 05/24/20 03:15 Phosphorus 3.5 mg/dL (2.5-4.9) 05/23/20 03:30 Magnesium 1.9 mg/dL (1.8-2.4) 05/24/20 03:15 Troponin I < 0.02 ng/mL (0.0-0.045) 05/23/20 11:54 Triglycerides Cancelled 05/23/20 07:55 Cholesterol Cancelled 05/23/20 07:55 HDL Cholesterol Cancelled 05/23/20 07:55 Cholesterol/HDL Ratio Cancelled 05/23/20 07:55 Home Medications: Amlodipine [Norvasc*] 10 mg PO DAILY 30 Days #30 tab 05/24/20 Apixaban [Eliquis] 2.5 mg PO BID 30 Days #60 tablet 05/24/20 Aspirin [Aspirin EC 81 MG] 81 mg PO DAILY 30 Days #30 tablet. 05/24/20 Atorvastatin Calcium [Lipitor] 40 mg PO BEDTIME 30 Days #30 tablet 05/24/20 Folic Acid 1 mg PO DAILY 30 Days #30 tablet 05/24/20 lisinopriL [Prinivil*] 20 mg PO DAILY 30 Days #30 tab 05/24/20 New Medications: Aspirin [Aspirin EC 81 MG] 81 mg PO DAILY 30 Days #30 tablet. Apixaban [Eliquis] 2.5 mg PO BID 30 Days #60 tablet Folic Acid 1 mg PO DAILY 30 Days #30 tablet Atorvastatin Calcium [Lipitor] 40 mg PO BEDTIME 30 Days #30 tablet Amlodipine [Norvasc*] 10 mg PO DAILY 30 Days #30 tab lisinopriL [Prinivil*] 20 mg PO DAILY 30 Days #30 tab Physician Discharge Instructions: You were found to have a stroke. MRI revealed a cluster of small strokes 5-10mm in size along your left thalamus involving the posterior limb of the internal capsule and left temporal lobe. The ultrasound of your heart (echocardiogram), and other tests were normal. They did not show any clot or narrowing of your arteries. You were also found to have high blood pressure. You are discharged with 2 medications for your blood pressure, and medications for your stroke. It is recommended that you continue some level of physical therapy. Please follow up with Dr. Belcher (neurology) in ~1 month. You were found to be positive for COVID-19, but were asymptomatic. This may have contributed to the cause of your stroke. You are prescribed a blood thinner eliquis - to take for at least 1 month in addition to a baby aspirin (81mg). Please check your blood pressure at home, once a day, and keep record. Take this to your PCP when you follow up with them in 3-5 days, so they can adjust your medication as needed. Diet: AHA Activity: Fall precautions Followup: Ever Belcher MD [ASSOCIATE-ACTIVE - CAN ADMIT] - (neurologist- follow up in 1 month, call to schedule an appointment ) Candelario Neff, [Primary Care Provider] - 1 Week (PCP- call to schedule an appointment ) Time spent managing pt's care (in minutes): 35
--- NOTE | 2020-05-24 13:16 | ECHO ---
HEIGHT: 5 ft 4 in WEIGHT: 146 lb 0 oz DATE OF STUDY: 05/23/[address]: yoselyn lua 2-DIMENSIONAL: YES M.MODE: YES DOPPLER: YES COLOR FLOW: YES TDS: PORTABLE: DEFINITY: BUBBLE STUDY: DIAGNOSIS: STROKE CARDIAC HISTORY: CATHERIZATION: NO SURGERY: NO PROSTHETIC VALVE: NO PACEMAKER: NO MEASUREMENTS (cm) DIASTOLIC (NORMALS) SYSTOLIC (NORMALS) IVSd (0.6-1.2) LA Diam (1.9-4.0) LVEF % LVIDd (3.5-5.7) LVIDs (2.0-3.5) %FS % LVPWd (0.6-1.2) Ao Diam (2.0-3.7) 2 DIMENSIONAL ASSESSMENT: RIGHT ATRIUM: NORMAL LEFT ATRIUM: NORMAL RIGHT VENTRICLE: NORMAL LEFT VENTRICLE: NORMAL TRICUSPID VALVE: NORMAL MITRAL VALVE: NORMAL PULMONIC VALVE: NORMAL AORTIC VALVE: NORMAL PERICARDIAL EFFUSION: NONE AORTIC ROOT: NORMAL LEFT VENTRICULAR WALL MOTION: NORMAL DOPPLER/COLOR FLOW: NORMAL COMMENTS: TECHNICALLY DIFFICULT STUDY. GROSSLY NORMAL LEFT VENTRICULAR EJECTION FRACTION AND SIZE. NO EVIDENCE OF THROMBUS. TECHNOLOGIST: BRIDGETT HIGGINS
[2020-05-24 16:01] VITALS: O2SAT 99
[2020-05-24 16:18] VITALS: BP 139/86
[2020-05-25 23:20] LABS: Vitamin D 1,25-Dihydroxy Total 87 pg/mL (18-72); Vitamin D,1,25-OH2, D2 <8 pg/mL
== END 2020-05-24 16:05 | disposition home or self-care (01) | DRG 64 ==
LOC: ER 09:56 → ERHOLD 12:32 → 4TH 14:01
PROVIDERS: ADMIT Internal Medicine; ATTEND Hospitalist
DX: I63.9 Cerebral infarction, unspecified (principal); U07.1 COVID-19; G81.91 Hemiplegia, unspecified affecting right dominant side; I10 Essential (primary) hypertension; R29.702 NIHSS score 2; R20.0 Anesthesia of skin; R29.810 Facial weakness; Z90.710 Acquired absence of both cervix and uterus; Z79.01 Long term (current) use of anticoagulants; Z79.82 Long term (current) use of aspirin; Z79.899 Other long term (current) drug therapy
CPT/HCPCS: 36415; 70450; 70544; 70549; 70553; 71045; 80048; 80061; 80307; 81003; 82607; 82652; 82728; 82947; 83735; 84100; 84443; 84484; 85025; 85610; 85652; 85730; 86140; 92610; 93005; 93306; 93880; 94760; 96365; 96366; 97112; 97116; 97161; 99284; A9577; J0360; J1650; J2405; J7030

== ENCOUNTER 2020-10-18 10:46 | Inpatient (IN) | payer SELFPAY ==
--- OUTSIDE RECORDS SUMMARY | 2020-10-18 10:49 | XMS REPORT | Continuity of Care Document ---
:1955 Author Organization [facility] t Address [address] [place] [address] Care Team Providers Name Role Phone Unavailable [...] Start Date Stop Date Source Never Smoker [facility] Medications Ordered Filled Start [...] Source BP Diastolic 2019-07-09 00:00:00 97 mm[Hg] [facility] Height 2019-07-09 00:00:00 64 [in_i] [facility] BMI (Body Mass 2019-07-09 00:00:00 25.1 kg/m2 [facility] BP Systolic 2019-07-09 00:00:00 193 mm[Hg[facility] Body Weight 2019-07-09 00:00:00 2339.2 [oz_av] [facility] BP Diastolic 2019-02-06 00:00:00 109 mm[Hg] [facility] Height 2019-02-06 00:00:00 64 [in_i] [facility] BMI (Body Mass 2019-02-06 00:00:00 25.2 kg/m2 [facility] BP Systolic 2019-02-06 00:00:00 215 mm[Hg] [facility] Body Weight 2019-02-06 00:00:00 2352 [oz_av] [facility] BP Diastolic 2018-11-17 00:00:00 94 mm[Hg] [facility] Height 2018-11-17 00:00:00 64 [in_i] [facility] BMI (Body Mass 2018-11-17 00:00:00 24.2 kg/m2 [facility] BP Systolic 2018-11-17 00:00:00 186 mm[Hg] [facility] Body Weight 2018-11-17 00:00:00 141 [lb_av] [facility] BP Diastolic 2018-10-17 00:00:00 95 mm[Hg] [facility] Height 2018-10-17 00:00:00 64 [in_i] [facility] BMI (Body Mass 2018-10-17 00:00:00 24.8 kg/m2 [facility] BP Systolic 2018-10-17 00:00:00 208 mm[Hg] [facility] Body Weight 2018-10-17 00:00:00 144.2 [lb_av] [facility] BP Diastolic 2018-10-14 00:00:00 97 mm[Hg] [facility] Height 2018-10-14 00:00:00 64 [in_i] [facility] BMI (Body Mass 2018-10-14 00:00:00 24.6 kg/m2 [facility] BP Systolic 2018-10-14 00:00:00 218 mm[Hg] [facility] Body Weight 2018-10-14 00:00:00 143.6 [lb_av] [facility] BP Diastolic 2018-08-21 00:00:00 88 mm[Hg] [facility] Height 2018-08-21 00:00:00 64 [in_i] [facility] BMI (Body Mass 2018-08-21 00:00:00 24.7 kg/m2 [facility] BP Systolic 2018-08-21 00:00:00 190 mm[Hg] [facility] Body Weight 2018-08-21 00:00:00 2305 [oz_av] [facility] Procedures Procedure Date / Time Performing Clinician Source Performed MAMMO, screening, 2018-08-21 00:00:00 [facility] Back Fusion 2003-09-27 00:00:00 [facility] Appendectomy [facility] Delivery [facility] Plan of Care Planned Activity Planned Date Details Comments Source Instructions [facility] Encounters Start End Encounter Admission Attending Care Care Encounter Source Date/Time Date/Time Type Type Clinicians Facility Department ID 2019-07-09 2019-07-09 Britany GARVEY [place] - [id number] [facility] 00:00:00 00:00:00 [facility] LE[employer] SOFTWARE TESTER: [address] [place] [address] [address], [place] [address] , Ph. 2019-02-06 2019-02-06 Britany MARE [place] - [id number] [facility] 00:00:00 00:00:00 [facility] [employer] SOFTWARE TESTER: [address] [facility] [address], [place] [address] , Ph. 2018-11-17 2018-11-17 Rom[facility] [place] - [id number] M at[facility] 00:00:00 00:00:00 Victoria Miguel Medicjesse galvan MD: [address] [place], [place] [address] [facility], [place] [address] , Ph. [phone] 2018-10-17 2018-10-17 Romina MARE [place] - [id number] M [facility] 00:00:00 00:00:00 Victoria Miguel Medicjesse galvan MD: [address] [place], [place] [address] [facility], [place] [address] , Ph. [phone] 2018-10-14 2018-10-14 Romina [facility] [place] - [id number] M [facility] 00:00:00 00:00:00 Darrin Alvarado Medical Medicjesse galvan MD: [address] [place], [place] [address] [facility], [place] [address] , Ph. [phone] 2018-08-21 2018-08-21 Lorenzo Tomas [facility] [place] - [id number] M at[facility]or 00:00:00 00:00:00 MD Anselmo: [address] [place] - [address], [place] [address] , Ph. Results Test Description Test Time Test Comments Results Result Comments Source Surgical pathology study 2018-10-17 12:30:00 Test Item Value Reference Range Interpretation Comme nts Surgical pathology study (test code = 86018-6) see separate patholo gy report. [facility] [id number] 12:30:00 Test Item Value Reference Range Interpretation Comments Surgical pathology see separate pathology study (test code = report. [id number]) [facility]
--- NOTE | 2020-10-18 11:19 | RAD REPORT ---
EXAM DESCRIPTION: CT - Ct Stroke Brain Wo Cont - 10/18/2020 11:00 am CLINICAL HISTORY: Right facial droop COMPARISON: April 2020 TECHNIQUE: Computed axial tomography of the head was obtained. All CT scans are performed using dose optimization technique as appropriate and may include automated exposure control or mA/KV adjustment according to patient size. FINDINGS: An intracranial bleed is not seen . The ventricles are normal in caliber. No extra-axial fluid collection is noted. Low-density areas within the left internal capsule/basal ganglia compatible with a late subacute infa rction. Small old lacunar infarct right thalamus Mild to moderate low-density within periventricular, deep and subcortical white matter likely ischemi c changes secondary to small vessel disease Fluid within the sinuses/ mastoids is not seen. IMPRESSION: No acute intracranial abnormality is seen. If patient's symptoms persist MRI of the bra in would be recommended. Dr Duong of the emergency room was notified at 11:14 a.m. October 18, 2020
[2020-10-18 11:23] LABS: Absolute Lymphocytes (CBC) 1.7 K/uL (0.7-4.9); Basophils % 1.2 % (0-1.3); Hematocrit 44.1 % (36.0-45.0); Lymphocytes % 29.4 % (15.3-44.8); MPV 8.7 fL (7.6-11.3); RBC Red Blood Cell Count 4.92 M/uL (3.86-4.86)
[2020-10-18 11:56] LABS: BUN Blood Urea Nitrogen 16 mg/dL (7-18); Bicarbonate 26 mmol/L (21-32); Glucose Level 84 mg/dL (74-106); Potassium 3.7 mmol/L (3.5-5.1); Sodium Level 142 mmol/L (136-145)
--- NOTE | 2020-10-18 12:00 | RAD REPORT ---
EXAM DESCRIPTION: Soto Single View10/18/2020 11:40 am CLINICAL HISTORY: CVA COMPARISON: April 2020 FINDINGS: The lungs appear clear of acute infiltrate. The heart is normal size IMPRESSION: No acute abnormalities displayed
--- NOTE | 2020-10-18 12:13 | RAD REPORT ---
EXAM DESCRIPTION: Federica Angio10/18/2020 11:30 am CLINICAL HISTORY: W19.XXXA, R07.81 COMPARISON: None TECHNIQUE: 50 cc Isovue 370 was administered intravenously. 3D MIP reconstruction performed All CT scans are performed using dose optimization technique as appropriate and may include automated exposure control or mA/KV adjustment according to patient size. FINDINGS: The common carotid, internal carotid and external carotid arteries bilaterally demonstrat e mild plaque. Distal right internal carotid artery is tortuous. Vertebral arteries are codominant without significant abnormality. No dissection visualized 13 millimeter right thyroid nodule IMPRESSION: Mild plaque within the carotid arteries 13 millimeter right thyroid nodule. Nonemergent thyroid ultrasound recommended NASCET criteria used. Mild 0-49% stenosis Moderate 50-69% stenosis Severe 70-99% stenosis
--- NOTE | 2020-10-18 12:16 | RAD REPORT ---
EXAM DESCRIPTION: CTHead angio10/18/2020 11:30 am CLINICAL HISTORY: Facial droop/right-sided weakness COMPARISON: None TECHNIQUE: CT angiogram of the head was obtained. 3D MIPS reconstruction performed. All CT scans are performed using dose optimization technique as appropriate and may include automated exposure control or mA/KV adjustment according to patient size. FINDINGS: The basilar, internal carotid, anterior cerebral, middle cerebral and posterior cerebral a rteries do not demonstrate a significant stenosis. An aneurysm is not seen. IMPRESSION: No significant abnormality is displayed
--- NOTE | 2020-10-18 12:30 | EDPHYS ---
Physician Documentation [facility] Name: Sandra Cervantes Age: 64 yrs Sex: Female : 1955 Arrival Date: 10/18/2020 Time: 10:49 Bed 2 Private MD: ED Physician Octavio Duong HPI: 10/18 11:11 This 64 yrs old Black Female presents to ER via Ambulatory with complaints of Weakness. rn 11:12 The patient presents to the emergency department with weakness of the right upper rn extremity, right lower extremity, right side of the face, a speech or higher order brain function problem, paresthesias of the. 11:18 Onset: The symptoms/episode began/occurred yesterday. Context: occurred at an unknown rn location. Associated signs and symptoms: Pertinent positives: paresthesias, weakness, Pertinent negatives: altered mental status, chills, fever, headache, neck stiffness, seizure, syncope, blurred vision, double vision, visual field changes, loss of vision. Severity of symptoms: At their worst the symptoms were mild in the emergency department the symptoms are unchanged. The patient has experienced a previous episode. The patient has been recently seen by a physician:. Patient reports right-sided facial droop, difficulty getting words out, right-sided weakness and numbness. States started feeling bad yesterday and noticed was dizzy with weakness of the right upper and right lower extremity. States this morning woke up and around 5 AM when she was putting on her make-up noticed right-sided facial droop and paresthesias. Today went to go see Dr. Neff, her PCP, for medication changes due to uncontrolled hypertension. States her strokelike symptoms were not picked up in clinic. Later she went to [facility] and noticed increased numbness of her right upper and right lower extremity. Similar to previous stroke in the past. No head injury. States could not afford the Eliquis she was prescribed due to cost.. Historical: - Allergies: 10:54 No Known Allergies; ss - PMHx: 10:54 Hypertension; ss - Immunization history:: Client reports having NOT received the Covid vaccine. - Social history:: Smoking status: Patient denies any tobacco usage or history of. - Family history:: not pertinent. - Hospitalizations: : No recent hospitalization is reported. ROS: 11:18 Constitutional: Negative for fever, chills, and weight loss, Eyes: Negative for injury, rn pain, redness, and discharge, Neck: Negative for injury, pain, and swelling, Cardiovascular: Negative for chest pain, palpitations, and edema, Respiratory: Negative for shortness of breath, cough, wheezing, and pleuritic chest pain, Abdomen/GI: Negative for abdominal pain, nausea, vomiting, diarrhea, and constipation, Back: Negative for injury and pain, : Negative for injury, bleeding, discharge, and swelling, MS/Extremity: Negative for injury and deformity, Skin: Negative for injury, rash, and discoloration, Neuro: Negative for headache, and seizure. 11:18 All other systems are negative. Exam: 11:18 Constitutional: This is a well developed, well nourished patient who is awake, alert, rn and in no acute distress. Head/Face: Normocephalic, atraumatic. Eyes: Periorbital areas with no swelling, redness, or edema. Neck: Trachea midline, no masses palpated, and no cervical lymphadenopathy. Supple, full range of motion without nuchal rigidity, or vertebral point tenderness. No Meningismus. Cardiovascular: Regular rate and rhythm. No pulse deficits. Respiratory: No increased work of breathing, no retractions or nasal flaring. Abdomen/GI: Soft, non-tender Skin: Warm, dry MS/ Extremity: Pulses equal, no cyanosis. Neuro: Awake and alert, GCS 15, oriented to person, place, time, and situation. Right-sided facial droop with some forehead sparing. Motor strength 5/5 in all extremities, slight difference in handbag finisher strength of right upper extremity when compared to left. No drift. Decreased sensation right upper extremity and right lower extremity as well as right face. Cerebellar exam normal. Normal gait. 11:52 ECG was reviewed by the Attending Physician. rn Vital Signs: 10:51 BP 155 / 103; Pulse 78; Resp 16; Temp 98.4(TE); Pulse Ox 98% on R/A; Weight 65.32 kg; ss Height 5 ft. 4 in. (162.56 cm); 12:00 BP 194 / 105; Pulse 76; Resp 16; Pulse Ox 97% on R/A; iw 14:01 BP 137 / 90; Pulse 66; Resp 16; Pulse Ox 100% on R/A; iw 10:51 Body Mass Index 24.72 (65.32 kg, 162.56 cm) NIH Stroke Scale Scores: 11:05 NIHSS Score: 3 iw 11:18 NIHSS Score: 3 rn MDM: 10:56 Patient medically screened. rn 10:57 ED course: Patient taken straight to CT prior to my evaluation from triage.. rn 11:08 ED course: No indication for TPA. Patient states felt off balance and increasing rn weakness as of yesterday. Woke up this morning around 5 AM when putting on make-up noticed that her right face seemed to droop a little bit. Patient outside of TPA window.. 11:12 ED course: CT head negative per Dr. Woods. rn 11:23 Data interpreted: teradata architect: rate is 78 beats/min, rhythm is normal sinus rhythm, rn regular, with no ectopy, Interpretation: normal rate, normal rhythm, Pulse oximetry: on room air is 98 %. Interpretation: normal. 12:28 Data reviewed: vital signs, nurses notes, lab test result(s), EKG, radiologic studies, rn CT scan, and as a result, I will admit patient. Counseling: I had a detailed discussion with the patient and/or guardian regarding: the historical points, exam findings, and any diagnostic results supporting the discharge/admit diagnosis, lab results, radiology results, the need for further work-up and treatment in the hospital. Response to treatment: There is no appreciated change of the patient's symptoms at this time, and as a result, I will admit patient. Admission orders: after a detailed discussion of the patient's condition and case, the admit orders are written by me. ED course: CT angio without evidence for large vessel occlusion. Will admit to hospitalist service.. 10/18 10:55 Order name: Basic Metabolic Panel 10/18 10:55 Order name: CBC with Diff; Complete Time: 12:18 10/18 10:55 Order name: Protime (+inr); Complete Time: 12:18 10/18 10:55 Order name: Ptt, Activated; Complete Time: 12:18 10/18 10:56 Order name: Basic Metabolic Panel; Complete Time: 12:18 [facility] 10/18 11:26 Order name: Glucose, Ancillary Testing; Complete Time: 12:18 [facility] 10/18 12:40 Order name: CREATININE WHOLE BLOOD [facility] 10/18 13:24 Order name: COVID-19 : Document "Date of Symptom Onset" if Symptomatic. iw 10/18 14:06 Order name: Hemoglobin A1c [facility] 10/18 14:09 Order name: CORONAVIRUS [facility] 10/18 14:14 Order name: Lipid Profile [facility] 10/18 14:14 Order name: T4 Free [facility] 10/18 14:14 Order name: Thyroid Stimulating Hormone [facility] 10/18 14:23 Order name: Troponin I [facility] 10/18 10:55 Order name: CT Stroke Brain w/o Contrast; Complete Time: 12:18 ss 10/18 10:55 Order name: Stroke CXR 1 View; Complete Time: 12:18 ss 10/18 11:10 Order name: CT Head Angio; Complete Time: 12:18 rn 10/18 11:10 Order name: CT Neck Angio; Complete Time: 12:18 rn 10/18 14:36 Order name: SARS-COV-2 RT PCR [facility] 10/18 17:44 Order name: Urine Dipstick-Ancillary [facility] 10/19 03:08 Order name: CBC with Automated Diff [facility] 10/19 03:20 Order name: Basic Metabolic Panel [facility] 10/19 03:20 Order name: Phosphorus [facility] 10/19 03:20 Order name: Magnesium [facility] 10/19 07:46 Order name: Glucose, Ancillary Testing [facility] 10/19 10:07 Order name: MRI [facility] 10/18 10:55 Order name: EKG; Complete Time: 10:56 ss 10/18 10:55 Order name: Accucheck; Complete Time: 11:15 10/18 10:55 Order name: Cardiac monitoring; Complete Time: 11:13 10/18 10:55 Order name: EKG - Nurse/Tech; Complete Time: 11:13 ss 10/18 10:55 Order name: IV Saline Lock; Complete Time: 11:16 ss 10/18 10:55 Order name: Labs collected and sent; Complete Time: 11:16 10/18 10:55 Order name: NPO; Complete Time: 11:13 10/18 10:55 Order name: O2 Per Protocol; Complete Time: 11:13 ss 10/18 10:55 Order name: O2 Sat Monitoring; Complete Time: 11:13 ss 10/18 10:55 Order name: Stroke Swallow Screen; Complete Time: 14:18 ss EC:52 Rate is 65 beats/min. Rhythm is regular. QRS [place] is Normal. RI interval is normal. QRS rn interval is normal. QT interval is normal. No Q waves. T waves are Normal. No ST changes noted. Clinical impression: NSR w/ Non-specific ST/T Changes. Interpreted by me. Reviewed by me. Administered Medications: 13:10 Drug: cloNIDine 0.1 mg Route: PO; iw 14:18 Follow up: Response: No adverse reaction sv 13:11 Drug: Aspirin Chewable Tablet 324 mg Route: PO; iw 14:18 Follow up: Response: No adverse reaction sv 13:11 Drug: foLIC Acid 1 mg Route: IVPB; Site: left antecubital; iw 13:12 Follow up: Response: No adverse reaction; IV Status: Completed infusion sv 13:11 Drug: PlaVIX (clopidogrel) 75 mg Route: PO; iw 14:18 Follow up: Response: No adverse reaction sv Point of Care Testing: Blood Glucose: 11:12 Blood Glucose: 90 mg/dL; sv Ranges: Critical Glucose Levels:Adult <50 mg/dl or >400 mg/dl <40 mg/dl or >180 mg/dl Disposition Summary: 10/18/20 12:29 Hospitalization Ordered Hospitalization Status: Inpatient Admission rn Condition: Stable rn Problem: new rn Symptoms: are unchanged rn Bed/Room Type: Standard rn Provider: Raul Elizabeth(10/18/20 13:11) rn Location: [facility] ER HOLD(10/18/20 15:33) Room Assignment: ERHOLD-(10/18/20 15:33) Diagnosis - Cerebral infarction, unspecified rn - Facial weakness rn - Weakness rn - Paresthesia of skin rn Forms: - Medication Reconciliation Form rn - SBAR form rn NIH Stroke Scale - NIH Stroke Score Date: 10/18/2020 Time: 11:05 Total Score = 3 1a. Level of Consciousness (LOC) - 0(Alert) 1b. Level of Consciousness (LOC) (Month \\T\\ Age) - 0(Both) 1c. LOC Commands (Open \\T\\ Closes Eyes/Waistline Joiner Overlock) - 0(Both) 2. Best Gaze (Lateral Gaze Paresis) - 0(Normal) 3. Visual Field Loss - 0(No visual loss) 4. Facial Palsy - 2(Partial paralysis) 5a. Left Arm: Motor (10-second hold) - 0(No drift) 5b. Right Arm: Motor (10-second hold) - 0(No drift) 6a. Left Leg: Motor (5-second hold - always test supine) - 0(No drift) 6b. Right Leg: Motor (5-second hold - always test supine) - 0(No drift) 7. Limb Ataxia (finger/nose \\T\\ heel/majano - test with eyes open) - 0(Absent) 8. Sensory Loss (pinprick arms/legs/face) - 1(Mild to moderate loss) 9. Best Language: Aphasia (description/naming/reading) - 0(No aphasia) 10. Dysarthria (speech clarity - read or repeat words) - 0(Normal) 11. Extinction and Inattention (visual/tactile/auditory/spatial/personal) - 0(No abnormality) Initials: NIH Stroke Scale - NIH Stroke Score Date: 10/18/2020 Time: 11:18 Total Score = 3 1a. Level of Consciousness (LOC) - 0(Alert) 1b. Level of Consciousness (LOC) (Month \\T\\ Age) - 0(Both) 1c. LOC Commands (Open \\T\\ Closes Eyes/Waistline Joiner Overlock) - 0(Both) 2. Best Gaze (Lateral Gaze Paresis) - 0(Normal) 3. Visual Field Loss - 0(No visual loss) 4. Facial Palsy - 2(Partial paralysis) 5a. Left Arm: Motor (10-second hold) - 0(No drift) 5b. Right Arm: Motor (10-second hold) - 0(No drift) 6a. Left Leg: Motor (5-second hold - always test supine) - 0(No drift) 6b. Right Leg: Motor (5-second hold - always test supine) - 0(No drift) 7. Limb Ataxia (finger/nose \\T\\ heel/majano - test with eyes open) - 0(Absent) 8. Sensory Loss (pinprick arms/legs/face) - 1(Mild to moderate loss) 9. Best Language: Aphasia (description/naming/reading) - 0(No aphasia) 10. Dysarthria (speech clarity - read or repeat words) - 0(Normal) 11. Extinction and Inattention (visual/tactile/auditory/spatial/personal) - 0(No abnormality) Initials: rn Signatures: Dispatcher [employer] Ysabel Keyes, RN RN Octavio Duong MD MD rn Smirch, Shelby, RN RN ss Belkis Heaton RN Corrections: (The following items were deleted from the chart) 13:11 12:29 Anusha Garcia rn rn 15:33 12:29 Telemetry/MedSurg (Inpatient) rn ss 15:33 12:29 abena ss
--- NOTE | 2020-10-18 12:30 | ER ---
Nurse's Notes [facility] Name: Sandra Cervantes Age: 64 yrs Sex: Female : 1955 Arrival Date: 10/18/2020 Time: 10:49 Bed 2 Private MD: Diagnosis: Cerebral infarction, unspecified;Facial weakness;Weakness;Paresthesia of skin Presentation: 10/18 10:51 Chief complaint: Patient states: Has been feeling off balance for the past few days, ss was seen by Dr. Neff and had medication changed. Pt reports that about an hour ago while she was at [facility], she began having tingling to R side face and R foot. Pt states that she noticed when she got her hair done at 0730 she couldn't get her words out. Pt reports feeling "off". Coronavirus screen: Client denies travel out of the [place] in the last 14 days. Ebola Screen: Patient denies exposure to infectious person. Patient denies travel to an Ebola-affected area in the 21 days before illness onset. Initial Sepsis Screen: Does the patient meet any 2 criteria? No. Patient's initial sepsis screen is negative. Does the patient have a suspected source of infection? No. Patient's initial sepsis screen is negative. Risk Assessment: Do you want to hurt yourself or someone else? Patient reports no desire to harm self or others. Onset of symptoms was October 18, 2020. 10:51 Method Of Arrival: Ambulatory ss 10:51 Acuity: ELIDA 2 ss 11:00 No acute neurological deficit is noted. Pre-hospital glucose is not applicable to this iw patient. Triage Assessment: 12:00 The onset of the patients symptoms was more than six hours ago. iw 12:00 The onset of the patients symptoms was October 16, 2020 at 09:00. iw Stroke Activation: Symptom onset > 6 hours Physician: Stroke Attending; Name: ; Notified At: ; Arrived At: Physician: Chief Stroke Resident; Name: ; Notified At: ; Arrived At: Physician: Stroke Resident; Name: ; Notified At: ; Arrived At: Physician: ED Attending; Name: ; Notified At: ; Arrived At: Physician: ED Resident; Name: ; Notified At: ; Arrived At: Historical: - Allergies: 10:54 No Known Allergies; ss - PMHx: 10:54 Hypertension; ss - Immunization history:: Client reports having NOT received the Covid vaccine. - Social history:: Smoking status: Patient denies any tobacco usage or history of. - Family history:: not pertinent. - Hospitalizations: : No recent hospitalization is reported. Screenin:12 Abuse screen: Denies threats or abuse. Denies injuries from another. Nutritional sv screening: No deficits noted. Tuberculosis screening: No symptoms or risk factors identified. Fall Risk None identified. 13:05 Patient has been NPO before screening. The patient is alert, able to follow commands. sv The patient does not exhibit slurred or garbled speech The patient is not exhibiting difficulty speaking. The patient does not exhibit difficulty understanding words. The patient is able to swallow own secretions with no drooling or need for suction. Patient tolerated one teaspoon of water. No drooling, immediate coughing, gurgling, or clearing of the throat was noted. The patient tolerated 90mL of water. No drooling, immediate coughing, gurgling, or clearing of the throat was noted. The patient passed the bedside swallow screening. Oral medications may be given as ordered. Contact Physician for further diet orders. Provider notified of bedside swallow screening results: Octavio Duong MD. Assessment: 11:02 Reassessment: pt states she started feeling off balance yesterday, was wobbly and fell. iw 11:05 VAN Scoring: Arm Drift: Patients demonstrates NO arm weakness. Patient is VAN Negative. iw Patient has been NPO before screening. The patient is alert, and able to follow commands. The patient does not exhibit slurred or garbled speech. The patient is not exhibiting difficulty speaking. The patient does not exhibit difficulty understanding words. The patient is able to swallow own secretions with no drooling or need for suction. Patient tolerated one teaspoon of water. No drooling, immediate coughing, gurgling, or clearing of the throat was noted. The patient tolerated 90mL of water. No drooling, immediate coughing, gurgling, or clearing of the throat was noted. The patient passed the bedside swallow screening. Oral medications may be given as ordered. Contact Physician for further diet orders. Provider notified of bedside swallow screening results: Octavio Duong MD. T-PA (Activase) Screening: Indications: Contraindications: Patient reports onset of signs and symptoms of stroke greater than 6 hours ago: Yes. 11:38 General: Appears in no apparent distress. Behavior is calm, cooperative. Pain: Denies iw pain. Neuro: Level of Consciousness is awake, alert, obeys commands, Oriented to person, place, time, situation, Heat Engineering Teacher are equal bilaterally Moves all extremities. Full function Speech is normal, Facial droop on right, Tingling in right cheek, right jaw, right hand and right foot. Cardiovascular: Patient's skin is warm and dry. Respiratory: Airway is patent Respiratory effort is even, unlabored. Derm: Skin is intact, is healthy with good turgor. Musculoskeletal: Range of motion: intact in all extremities. 13:32 Reassessment: Patient appears in no apparent distress at this time. Patient and/or iw family updated on plan of care and expected duration. Pain level reassessed. Patient is alert, oriented x 3, equal unlabored respirations, skin warm/dry/pink. Vital Signs: 10:51 BP 155 / 103; Pulse 78; Resp 16; Temp 98.4(TE); Pulse Ox 98% on R/A; Weight 65.32 kg; ss Height 5 ft. 4 in. 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 ds1 10:54 Triage completed. ss 10:54 Arm band placed on right wrist. ss 10:56 Octavio Duong MD is Attending Physician. rn 11:00 CT Stroke Brain w/o Contrast In Process Unspecified. EDMS 11:02 Ysabel Guo, PIPER is Primary Nurse. iw 11:12 Patient has correct armband on for positive identification. Placed in gown. Bed in low sv position. Call light in reach. cardiac monitor technician on. Pulse ox on. NIBP on. Door closed. Head of bed elevated. 11:12 EKG done, by ED staff, reviewed by Octavio Duong MD. mt 11:12 Inserted saline lock: 20 gauge in left antecubital area, using aseptic technique. sv ,using aseptic technique. done by Ysabel SALDAÑA Blood collected. 11:30 CT Head Angio In Process Unspecified. EDMS 11:30 CT Neck Angio In Process Unspecified. EDMS 11:40 Stroke CXR 1 View In Process Unspecified. EDMS 12:15 Basic Metabolic Panel Sent. sv 12:29 Anusha Garcia MD is Hospitalizing Provider. rn 13:11 Raul Elizabeth is Hospitalizing Provider. rn 14:18 CORONAVIRUS Sent. sv 14:18 COVID-19 : Document "Date of Symptom Onset" if Symptomatic. Sent. sv 18:22 No provider procedures requiring assistance completed. Patient admitted, IV remains in iw place. 19:42 Primary Nurse role handed off by Ysabel Guo, PIPER mw2 Administered Medications: 13:10 Drug: cloNIDine 0.1 mg Route: PO; iw 14:18 Follow up: Response: No adverse reaction sv 13:11 Drug: Aspirin Chewable Tablet 324 mg Route: PO; iw 14:18 Follow up: Response: No adverse reaction sv 13:11 Drug: foLIC Acid 1 mg Route: IVPB; Site: left antecubital; iw 13:12 Follow up: Response: No adverse reaction; IV Status: Completed infusion sv 13:11 Drug: PlaVIX (clopidogrel) 75 mg Route: PO; iw 14:18 Follow up: Response: No adverse reaction sv Point of Care Testing: Blood Glucose: 11:12 Blood Glucose: 90 mg/dL; sv Ranges: Outcome: 12:29 Decision to Hospitalize by Provider. rn 12:30 Admitted to ER Hold. Please see [facility] for further documentation. iw 12:30 Condition: good 12:30 Discharge instructions given to patient, Instructed on the need for admit. 10/19 13:17 Patient left the ED. iw NIH Stroke Scale - NIH Stroke Score Date: 10/18/2020 Time: 11:05 Total Score = 3 1a. Level of Consciousness (LOC) - 0(Alert) 1b. Level of Consciousness (LOC) (Month \\T\\ Age) - 0(Both) 1c. LOC Commands (Open \\T\\ Closes Eyes/Records Management Manager) - 0(Both) 2. Best Gaze (Lateral Gaze Paresis) - 0(Normal) 3. Visual Field Loss - 0(No visual loss) 4. Facial Palsy - 2(Partial paralysis) 5a. Left Arm: Motor (10-second hold) - 0(No drift) 5b. Right Arm: Motor (10-second hold) - 0(No drift) 6a. Left Leg: Motor (5-second hold - always test supine) - 0(No drift) 6b. Right Leg: Motor (5-second hold - always test supine) - 0(No drift) 7. Limb Ataxia (finger/nose \\T\\ heel/majano - test with eyes open) - 0(Absent) 8. Sensory Loss (pinprick arms/legs/face) - 1(Mild to moderate loss) 9. Best Language: Aphasia (description/naming/reading) - 0(No aphasia) 10. Dysarthria (speech clarity - read or repeat words) - 0(Normal) 11. Extinction and Inattention (visual/tactile/auditory/spatial/personal) - 0(No abnormality) Initials: iw NIH Stroke Scale - NIH Stroke Score Date: 10/18/2020 Time: 11:18 Total Score = 3 1a. Level of Consciousness (LOC) - 0(Alert) 1b. Level of Consciousness (LOC) (Month \\T\\ Age) - 0(Both) 1c. LOC Commands (Open \\T\\ Closes Eyes/Records Management Manager) - 0(Both) 2. Best Gaze (Lateral Gaze Paresis) - 0(Normal) 3. Visual Field Loss - 0(No visual loss) 4. Facial Palsy - 2(Partial paralysis) 5a. Left Arm: Motor (10-second hold) - 0(No drift) 5b. Right Arm: Motor (10-second hold) - 0(No drift) 6a. Left Leg: Motor (5-second hold - always test supine) - 0(No drift) 6b. Right Leg: Motor (5-second hold - always test supine) - 0(No drift) 7. Limb Ataxia (finger/nose \\T\\ heel/majano - test with eyes open) - 0(Absent) 8. Sensory Loss (pinprick arms/legs/face) - 1(Mild to moderate loss) 9. Best Language: Aphasia (description/naming/reading) - 0(No aphasia) 10. Dysarthria (speech clarity - read or repeat words) - 0(Normal) 11. Extinction and Inattention (visual/tactile/auditory/spatial/personal) - 0(No abnormality) Initials: rn Signatures: Dispatcher [employer] Belkis Melgar, Leonor Zavala RN ds1 Ysabel Guo, Octavio Crowe RN, MD MD rn Smirch, Shelby, Vee Dave RN pa Zhanna Rankin 2
[2020-10-18] MEDS ORDERED: LABETALOL 20 MG/4ML SYRINGE IV PRN (13:12)
[2020-10-18] MEDS ORDERED: HYDROCODONE/APAP 5/325 MG TAB PO PRN (13:12)
[2020-10-18] MEDS ORDERED: ACETAMINOPHEN 500 MG TAB PO PRN (13:13)
[2020-10-18] MEDS ORDERED: ONDANSETRON 4 MG/2 ML VIAL IV PRN (13:13)
--- NOTE | 2020-10-18 13:18 | P.HP ---
Certification for Inpatient Patient admitted to: Inpatient With expected LOS: >2 Midnights Practitioner: I am a practitioner with admitting privileges, knowledge of patient current condition, hospital course, and medical plan of care. Services: Services provided to patient in accordance with Admission requirements found in Title 42 Section 412.3 of the Code of Federal Regulations Patient History Date of Service: 10/18/20 Reason for admission: Suspected CVA History of Present Illness: Patient is a 64-year-old female with a past medical history significant for hypertension and covid 19 infection who presents with complaint of right upper extremity weakness, right facial droop, right lower extremity numbness\weakness and right facial weakness.. Patient reported that she had poor gait 2 days ago and yesterday she had some slurred speech. Patient also reported that she has been previous stroke earlier in May 2020. Patient reports associated signs and symptoms of headache and dizziness. Patient denies any other signs or symptoms. Symptoms are aggravated or relieved by nothing. Patient decided to present to the hospital for medical evaluation Allergies No Known Allergies Allergy (Unverified 05/22/20 15:07) Home Medications: Amlodipine [Norvasc*] 10 mg PO DAILY 30 Days #30 tab 05/24/20 Apixaban [Eliquis] 2.5 mg PO BID 30 Days #60 tablet 05/24/20 Aspirin [Aspirin EC 81 MG] 81 mg PO DAILY 30 Days #30 tablet.dr 05/24/20 Atorvastatin Calcium [Lipitor] 40 mg PO BEDTIME 30 Days #30 tablet 05/24/20 Folic Acid 1 mg PO DAILY 30 Days #30 tablet 05/24/20 lisinopriL [Prinivil*] 20 mg PO DAILY 30 Days #30 tab 05/24/20 - Past Medical/Surgical History Diabetic: No -: Hypertension -: Hysterectomy - Family History Mother -: Cancer - Social History Alcohol use: No CD- Drugs: No Caffeine use: Yes Review of Systems General: Weakness, Malaise Eyes: Unremarkable ENT: Unremarkable Respiratory: Unremarkable Cardiovascular: Unremarkable Gastrointestinal: Unremarkable Musculoskeletal: Other (Poor gait ) Integumentary: Unremarkable Neurological: Weakness, Numbness, Change in Speech Lymphatics: Unremarkable Physical Examination - Physical Exam General: Alert, In no apparent distress, Oriented x3 HEENT: Atraumatic, PERRLA, Mucous membr. moist/pink, EOMI, Sclerae nonicteric Neck: Supple, 2+ carotid pulse no bruit, No LAD, Without JVD or thyroid abnormality Respiratory: Clear to auscultation bilaterally, Normal air movement Cardiovascular: Regular rate/rhythm, Normal S1 S2 Gastrointestinal: Normal bowel sounds, No tenderness Musculoskeletal: No clubbing, No tenderness Integumentary: No rashes, No breakdown Neurological: Normal affect, Abnormal gait, Abnormal speech, Abnormal strength Lymphatics: No axilla or inguinal lymphadenopathy External genitalia: Deferred Rectal: Deferred - Studies Laboratory Data (last 24 hrs) 10/18/20 11:12: PT 11.5, INR 1.00, APTT 31.0 10/18/20 11:12: WBC 5.90, Hgb 15.1 H, Hct 44.1, Plt Count 203 10/18/20 11:12: Sodium 142, Potassium 3.7, BUN 16, Creatinine 0.66, Glucose 84 Assessment and Plan - Plan --Suspected CVA. MRI brain pending. Neurology consulted. Patient placed on aspirin and Plavix. We will await further recommendation from neurologist. --Hypertension. Will allow for permissive hypertension. Labetalol as needed for SBP greater than 200. --History of COVID-19 infection.. Continue supportive care. --Dysarthria. Speech therapy consult initiated. MRI brain pending. Continue supportive care. --Abnormality of gait and movement. PT consult initiated. We will further recommendations. -- Paresthesias. Patient reports improvement in symptoms. Continue supportive care. --HLD. Continue statin. --DVT prophylaxis with Lovenox subQ I have had discussion about advanced directives with the patient and /or family during this hospital admission. Addressed code status and /or goals of care. Spent more than 15 minutes. Case discussed withpatient and nurse. Discharge disposition. Continue hospital stay. Discharge Plan: Home Plan to discharge in: 48 Hours - Advance Directives Does patient have a Living Will: No Does patient have a Durable POA for Healthcare: No - Code Status/Comfort Care Code Status Assessed: Yes Code Status: Full Code Physician Review: Patient Assessed, Agree with Above Assessment and Plan Critical Care: No
[2020-10-18] MEDS ORDERED: cloNIDine HCL 0.1 MG TAB ONE (13:23)
[2020-10-18] MEDS ORDERED: ASPIRIN 81 MG CHEWABLE TABLET ONE (13:24)
[2020-10-18] MEDS ORDERED: CLOPIDOGREL 75 MG TABLET ONE (13:24)
[2020-10-18] MEDS ORDERED: FOLIC ACID 5 MG/ML VIAL ONE (13:25)
[2020-10-18 14:14] LABS: Thyroid Stimulating Hormone 1.99 uIU/mL (0.360-3.740)
[2020-10-18] MEDS ORDERED: LORazepam 2 MG/ML VIAL IV ONE (15:00)
[2020-10-18] MEDS ORDERED: LORazepam 2 MG/ML VIAL ONE (15:55)
[2020-10-18 16:49] VITALS: BMI 24.7
[2020-10-18 17:43] LABS: Urine Blood Negative (Negative); Urine Glucose Negative (Negative); Urine Protein Negative (Negative)
[2020-10-18] MEDS ORDERED: ATORVASTATIN 40 MG TAB PO SCH (21:19)
[2020-10-19 02:55] LABS: Absolute Lymphocytes (CBC) 1.3 K/uL (0.7-4.9); Basophils % 0.7 % (0-1.3); Hematocrit 38.4 % (36.0-45.0); Lymphocytes % 26.3 % (15.3-44.8); MPV 8.9 fL (7.6-11.3); RBC Red Blood Cell Count 4.27 M/uL (3.86-4.86)
[2020-10-19 03:20] LABS: BUN Blood Urea Nitrogen 17 mg/dL (7-18); Bicarbonate 27 mmol/L (21-32); Glucose Level 85 mg/dL (74-106); Magnesium 2.2 mg/dL (1.8-2.4); Phosphorus 3.7 mg/dL (2.5-4.9); Potassium 3.9 mmol/L (3.5-5.1); Sodium Level 142 mmol/L (136-145)
[2020-10-19] MEDS ORDERED: KCL 20 MEQ/100 mL IVPB 20 MEQ/100 ML BAG IV SCH (06:00)
[2020-10-19] MEDS ORDERED: KCL 20 MEQ/100 mL IVPB 20 MEQ/100 ML BAG IV ONE (06:09)
[2020-10-19] MEDS ORDERED: NA CHLORIDE 0.9% 250 ML ONE (06:09)
[2020-10-19] MEDS: INSULIN -REGULAR HUMAN 50 UNIT/0.5 ML ML SQ SCH ×2 (07:30→11:30)
[2020-10-19] MEDS ORDERED: ASPIRIN 81 MG CHEWABLE TABLET ONE (07:57)
[2020-10-19] MEDS ORDERED: ENOXAPARIN 40 MG/0.4 ML SQ ONE (07:57)
[2020-10-19] MEDS ORDERED: CLOPIDOGREL 75 MG TABLET ONE (07:57)
[2020-10-19] MEDS ORDERED: FOLIC ACID 1 MG TABLET ONE (07:57)
[2020-10-19] MEDS ORDERED: NA CHLORIDE 0.9% 1,000 ML ONE (08:00)
[2020-10-19] MEDS ORDERED: ASPIRIN 81 MG CHEWABLE TABLET PO SCH (09:00)
[2020-10-19] MEDS ORDERED: CLOPIDOGREL 75 MG TABLET PO SCH (09:00)
[2020-10-19] MEDS ORDERED: FOLIC ACID 1 MG TABLET PO SCH (09:00)
[2020-10-19] MEDS ORDERED: ENOXAPARIN 40 MG/0.4 ML SQ SCH (09:00)
--- NOTE | 2020-10-19 10:07 | RAD REPORT ---
EXAM DESCRIPTION: MRI - Brain Wo Cont - 10/18/2020 4:00 pm CLINICAL HISTORY: History of stroke, right leg weakness COMPARISON: 05/23/2020 TECHNIQUE: Sagittal T1-weighted images were obtained along with PD/heavily T2-weighted and T2-FLAIR images. Axial DWI and ADC mapping sequences were also obtained along with coronal heavily T2-weighted images were obtained. FINDINGS: No acute intracranial hemorrhage, mass effect, hydrocephalus, or midline shift. Sequela of remote bilateral mccall radiata and basal ganglia lacunar infarcts. No acute infarcts iden tified. Similar moderate chronic small vessel ischemic changes. Difficult to exclude a small subacute left punctate infarct at the junction of the left basal ganglia and mccall radiata. This is bright o n DWI 8 but no corresponding low signal on ADC peer Mastoid air cells and paranasal sinuses are clear. IMPRESSION: Question subacute left basal ganglia/ mccall radiata infarct but no evidence of an acute infarct is identified. Sequela of remote bilateral lacunar infarcts.
[2020-10-19 11:11] VITALS: O2SAT 98
[2020-10-19 12:52] VITALS: BP 135/89; TEMP 98
--- NOTE | 2020-10-19 12:59 | P.DS ---
Admission Date: 10/18/20 Discharge Date: 10/19/20 Discharge Condition: GOOD Reason for Admission: Suspected CVA Consultations: Neurology Brief History of Present Illness: Patient is a 64-year-old female with a past medical history significant for hypertension and covid 19 infection who presents with complaint of right upper extremity weakness, right facial droop, right lower extremity numbness\weakness and right facial weakness.. Patient reported that she had poor gait 2 days ago and yesterday she had some slurred speech. Patient also reported that she has been previous stroke earlier in May 2020. Patient reports associated signs and symptoms of headache and dizziness. Patient denies any other signs or symptoms. Symptoms are aggravated or relieved by nothing. Patient decided to present to the hospital for medical evaluation Hospital Course: Patient is a 64-year-old female with a past medical history significant for hypertension and covid 19 infection who presents with complaint of right upper extremity weakness, right facial droop, right lower extremity numbness\weakness and right facial weakness. CT head brain did not indicate any acute intracranial abnormality. Neurology was consulted. Patient previously had a stroke about 6 months ago and also she had COVID-19 infection for which was placed on Eliquis. Patient [facility] Patient was placed on Plavix. Patient currently taking aspirin, folic acid and statin. MRI brain indicated old stroke. Images were reviewed by neurologist. Blood pressure was initially elevated and permissive hypertension was allowed. Blood pressure was later controlled with medications when there was no indication of an acute stroke. Patient was cleared by speech as well as physical therapists. Patient also was cleared by neurologist for discharge. Patient instructed to follow-up with her PCP and neurologist outpatient. Patient verbalized understanding of discharge instructions and was discharged in stable condition. Vital Signs/Physical Exam: Temp Pulse Resp BP Pulse Ox 98.0 F 64 16 135/89 97 10/19/20 12:00 10/19/20 12:00 10/19/20 12:00 10/19/20 12:00 10/19/20 12:00 Laboratory Data at Discharge: WBC 4.90 K/uL (4.3-10.9) D 10/19/20 02:36 Hgb 13.0 g/dL (12.0-15.0) 10/19/20 02:36 Hct 38.4 % (36.0-45.0) 10/19/20 02:36 Plt Count 178 K/uL (152-406) 10/19/20 02:36 PT 11.5 SECONDS (9.5-12.5) 10/18/20 11:12 INR 1.00 10/18/20 11:12 APTT 31.0 SECONDS (24.3-36.9) 10/18/20 11:12 Sodium 142 mmol/L (136-145) 10/19/20 02:36 Potassium 3.9 mmol/L (3.5-5.1) 10/19/20 02:36 BUN 17 mg/dL (7-18) 10/19/20 02:36 Creatinine 0.60 mg/dL (0.55-1.3) 10/19/20 02:36 Glucose 85 mg/dL (74-106) 10/19/20 02:36 Phosphorus 3.7 mg/dL (2.5-4.9) 10/19/20 02:36 Magnesium 2.2 mg/dL (1.8-2.4) 10/19/20 02:36 Troponin I < 0.02 ng/mL (0.0-0.045) 10/18/20 13:36 Triglycerides 74 mg/dL (<150) 10/18/20 13:36 Cholesterol 238 mg/dL (<200) H 10/18/20 13:36 HDL Cholesterol 76 mg/dL (40-60) H 10/18/20 13:36 Cholesterol/HDL Ratio 3.13 10/18/20 13:36 Home Medications: Amlodipine [Norvasc*] 10 mg PO DAILY 30 Days #30 tab 05/24/20 Aspirin [Aspirin EC 81 MG] 81 mg PO DAILY 30 Days #30 tablet. 05/24/20 Atorvastatin Calcium [Lipitor] 40 mg PO BEDTIME 30 Days #30 tablet 05/24/20 Folic Acid 1 mg PO DAILY 30 Days #30 tablet 05/24/20 lisinopriL [Prinivil*] 20 mg PO DAILY 30 Days #30 tab 05/24/20 Clopidogrel Bisulfate [Plavix*] 75 mg PO DAILY 30 Days tablet 10/19/20 New Medications: Clopidogrel Bisulfate [Plavix*] 75 mg PO DAILY 30 Days tablet Diet: ADA Activity: Ad ken Followup: Candelario Neff, DO [Primary Care Provider] - 1-2 Weeks (F/U with Neurologist in 1 week )
--- NOTE | 2020-10-19 15:41 | EKG ---
Test Date: 2020-10-18 Test Time: 11:11:01 [employer] Mill Operator: RAFAEL MEASUREMENT RESULTS: Intervals: Rate: 65 IA: 152 QRSD: 86 QT: 406 QTc: 422 [place]: P: 32 IA: 152 QRS: -11 T: 25 INTERPRETIVE STATEMENTS: Normal sinus rhythm Minimal voltage criteria for LVH, may be normal variant Inferior infarct, age undetermined Abnormal ECG Compared to ECG 05/22/2020 10:42:16 Myocardial infarct finding now present Sinus bradycardia no longer present Electronically Signed On 10-19-20 15:37:16 CDT by Santi Cao
--- NOTE | 2020-10-19 22:50 | CON ---
Consultation called because of suspected additional new stroke. History Of Present Illness: Ms. Cervantes is a 64-year-old right-handed patient who was admi tted at [facility] at the end of April this year with COVID and a stroke affecting the left basal ganglia and mccall radiata producing right face, arm and leg numbness and weakness. She actual ly began to recover very well immediately after the stroke, was discharged without inpatient rehab, b ut she has no resources and given aspirin along with Eliquis and high-dose statin and folic acid. Ho wever, she could not afford the Eliquis and was just on aspirin. Furthermore, she has been more dehy drated and has resolved this last week and developed worsening right-sided weakness, incoordination, poor balance and difficulty getting her words out properly along with slurred speech. She came to [facility] on October 18, 2020. She had a head CT scan, which identified no acute intracranial abnormalities. The prior stroke was identified as a low-density area in the left internal capsule b sp ganglia, was compatible with late subacute stroke. Subsequent MRI of the brain identified a str rhianna as a subacute stroke in the left basal ganglia mccall radiata with no acute changes. She did rec eive intravenous fluids and actually recovered towards baseline, the weakness of the right face, arm, and leg, in addition to her ability to speak and get the proper words out. CT angiogram of the head and neck showed no significant abnormalities. She had mild plaque within carotid arteries. There w as a 13 mm right thyroid nodule that was recommended to be followed up. Her head CT angiogram showed no significant abnormalities and the basilar internal carotid artery, anterior cerebral artery, midd le cerebral artery, posterior cerebral artery. Her blood work showed essentially an unremarkable com plete blood count with differential, normal coagulation panel and her basic metabolic panel was unrem arkable except for slightly elevated chloride of 113. Total cholesterol 238, LDL cholesterol 147, HD L cholesterol 76. Urinalysis showed trace esterase was otherwise unremarkable and COVID test now is negative. Past Medical History: Hypertension, stroke. Allergies: NO KNOWN DRUG ALLERGIES. Medications: Aspirin 81 mg daily, Lipitor 40 mg at night, folic acid 1 mg daily. She is now placed on Plavix 75 mg daily, Lovenox 40 mg daily for DVT prophylaxis. She does have the potassium replacem ent. Family History: Noncontributory. Review of Systems: Aside from noted above, no recent chills, fever, myalgias, arthralgias, rash, headache or weight ball ge. Physical Examination: Currently, she has in terms of positive findings, mild right face arm and leg weakness with good faci al excursion, occasional difficulty finding the right word when speaking and mild dysarthria. She berkowitz d a stroke scale of 3 and that is for numbness in the right upper and lower extremity, weakness in th e right upper and lower extremity and facial asymmetry, otherwise no other focal findings on neurolog ical examination. Assessment: Ms. Cervantes is a 64-year-old patient with a subacute to chronic stroke in the setting of COVID plus hypertension. She did not take the Eliquis along with the aspirin as she could not affor d the Eliquis and did not have a new stroke, but likely has been dehydrated, which reversed her strok e recovery and cause additional right-sided weakness which is now resolved to baseline. Plan: Aspirin 81 mg daily, Plavix 75 mg daily, folic acid 1 mg daily, and Lipitor 40 mg at bedtime. She was shown a series of exercises to do at home as she does not have resources to allow her to have physical therapy. She will call the office next week and make an appointment for followup. LEAH/MARIELY Voice ID: [id number] Report ID: [id number]
--- NOTE | 2020-10-20 08:13 | ECHO ---
HEIGHT: 5 ft 4 in WEIGHT: 144 lb 0 oz DATE OF STUDY: 10/19/[address]: 2-DIMENSIONAL: YES M.MODE: YES DOPPLER: YES COLOR FLOW: YES TDS: PORTABLE: DEFINITY: BUBBLE STUDY: DIAGNOSIS: TRANSIENT ISCHEMIC ATTACK CARDIAC HISTORY: CATHERIZATION: SURGERY: PROSTHETIC VALVE: PACEMAKER: MEASUREMENTS (cm) DIASTOLIC (NORMALS) SYSTOLIC (NORMALS) IVSd 1.0 (0.6-1.2) LA Diam (1.9-4.0) LVEF 63% LVIDd 3.7 (3.5-5.7) LVIDs 2.4 (2.0-3.5) %FS 33% LVPWd 0.8 (0.6-1.2) Ao Diam 2.7 (2.0-3.7) 2 DIMENSIONAL ASSESSMENT: RIGHT ATRIUM: LEFT ATRIUM: RIGHT VENTRICLE: LEFT VENTRICLE: TRICUSPID VALVE: MITRAL VALVE: PULMONIC VALVE: AORTIC VALVE: PERICARDIAL EFFUSION: AORTIC ROOT: LEFT VENTRICULAR WALL MOTION: DOPPLER/COLOR FLOW: COMMENTS: NORMAL 2-DIMENSIONAL ECHOCARDIOGRAM WITH DOPPLER. TECHNOLOGIST: RHONDA STONE
== END 2020-10-19 13:25 | disposition home or self-care (01) | DRG 65 ==
LOC: ER 10:46 → ERHOLD 13:09
PROVIDERS: ADMIT Internal Medicine; ATTEND Internal Medicine
DX: I63.9 Cerebral infarction, unspecified (principal); G81.91 Hemiplegia, unspecified affecting right dominant side; R47.1 Dysarthria and anarthria; R29.703 NIHSS score 3; E86.0 Dehydration; I10 Essential (primary) hypertension; Z86.16 Personal history of COVID-19; Z20.822 Contact with and (suspected) exposure to COVID-19
CPT/HCPCS: 36415; 70450; 70496; 70498; 70551; 71045; 80048; 80061; 81003; 82565; 82947; 83036; 83735; 84100; 84439; 84443; 84484; 85025; 85610; 85730; 92610; 93005; 93306; 94760; 96374; 97112; 97116; 97161; 99285; J1650; J3480; J7030; J7050; Q9967; U0003